=== PATIENT | female | born 1960 | race Caucasian/White ===

== ENCOUNTER → 2020-01-12 15:29 | Outpatient (CLI) | payer OTHER, SELFPAY ==
--- NOTE | ~2020-01-12 | XR_ITS ---
EXAMINATION: XR lumbar spine min 4V EXAM DATE: 01/12/2020 15:54 INDICATION: Low back pain. TECHNIQUE: Lumber spine frontal, lateral, bilateral oblique projections. Coned down frontal and lat eral L5-S1 lumbar projections for interpretation. There is no prior study for comparison. FINDINGS: There is moderate disc disease at L5-S1, mild to moderate at L2-3 and L4-5, mild at L3-4. T here is mild upper lumbar, mild to moderate lower lumbar facet arthropathy. Vertebral body heights ar e maintained. Sacrum, sacroiliac joints, sacral arcuate lines are intact. There is no spondylolysis. Paraspinal soft tissue is unremarkable. IMPRESSION: Mild to moderate lumbar spondylosis. Reviewed, dictated and finalized at location A. DING ATTENDANT
== END ==
PROVIDERS: PCP Internal Medicine; Visit Provider Chiropractor
DX: M99.03 Segmental and somatic dysfunction of lumbar region (principal); M99.02 Segmental and somatic dysfunction of thoracic region; M99.05 Segmental and somatic dysfunction of pelvic region; M99.04 Segmental and somatic dysfunction of sacral region; M47.896 Other spondylosis, lumbar region
CPT/HCPCS: 72110

== ENCOUNTER 2020-04-27 17:26 | Outpatient (CLI) | payer OTHER, SELFPAY ==
--- NOTE | ~2020-04-27 | MR_ITS ---
EXAMINATION: MR lumbar spine wo con DATE: 04/27/2020 18:30 INDICATION: Lumbar radiculopathy. TECHNIQUE: Magnetic resonance imaging (MRI) of the lumbar spine was performed without intravenous con trast. Sequences included sagittal T2-weighted FSE, sagittal T2-weighted FS FSE, sagittal T1-weighted FSE, and axial T2-weighted FSE. COMPARISON: Lumbar spine radiographs 01/12/2020 FINDINGS: There is 4 mm retrolisthesis of L2 on L3. Vertebral body heights are normal. There is mildl y decreased disc height at L2-L3 and L3-L4 and severely decreased disc height at L4-L5 and L5-S1. The distal spinal cord signal intensity is normal. The conus medullaris is at T12-L1. The following disc levels are specifically discussed: L1-L2: The disc does not extend beyond the endplate margin. There is mild left facet joint osteoarthr itis. There is no neural foraminal stenosis. There is no central canal stenosis. L2-L3: The disc is bulging. There is mild bilateral facet joint osteoarthritis. There is mild bilater al neural foraminal stenosis. There is mild central canal stenosis. L3-L4: The disc is bulging. There is moderate bilateral facet joint osteoarthritis. There is mild ollie ateral neural foraminal stenosis. There is mild central canal stenosis. L4-L5: The disc is bulging with superimposed central extrusion with 16 mm superior extension to the p edicular level. There is severe right and moderate left facet joint osteoarthritis. There is moderate bilateral neural foraminal stenosis. There is moderate central canal stenosis. L5-S1: The disc is bulging and has an annular fissure. There is moderate bilateral facet joint osteoa rthritis. There is mild bilateral neural foraminal stenosis. There is mild central canal stenosis. IMPRESSION: 1. Severe lumbar spondylosis. Reviewed, dictated and finalized at location A.
== END 2020-04-27 17:27 | disposition home or self-care (01) ==
LOC: ANHIMG 17:26
PROVIDERS: PCP Internal Medicine; Visit Provider Internal Medicine
DX: M47.26 Other spondylosis with radiculopathy, lumbar region (principal)
CPT/HCPCS: 72148

== ENCOUNTER → 2021-01-13 00:46 | Outpatient (CLI) | payer OTHER, SELFPAY ==
[2021-01-13 19:48] LABS: SARS-CoV-2 RNA PCR Negative
== END ==
PROVIDERS: PCP Internal Medicine; Visit Provider Internal Medicine Gastroenterology
DX: Z01.812 Encounter for preprocedural laboratory examination (principal); Z20.822 Contact with and (suspected) exposure to COVID-19
CPT/HCPCS: C9803; U0003; U0005

== ENCOUNTER 2021-01-16 00:53 | Day surgery (SDC) | payer OTHER, SELFPAY ==
[2021-01-03 09:23] VITALS: BMI 25.9
[2021-01-16 11:17] VITALS: BP 124/71; PULSE 76; RESP 18; TEMP 36.5; O2SAT 99
[2021-01-16] MEDS: LACTATED RINGERS 1,000 ML 150 ML IV CONT (11:28)
--- NOTE | 2021-01-16 11:46 | WPDANESEPPF ---
Anes - Initial Pre Proc Eval Procedure: Operation Date: 01/16/21 12:15 Proposed Procedures p Screening Colonoscopy - Ilan Adan MD Date/Time: 01/16/21 11:46 Surgeon: Ilan Adan MD Pre Op Diagnosis: Neoplasm Screening Patient Data Age: 60 Gender: F Height: 5 ft 10 in Weight: 82.9 kg Last Vital Signs Temp 36.5 C 01/16/21 11:17 Pulse 76 01/16/21 11:17 Resp 18 01/16/21 11:17 BP 124/71 01/16/21 11:17 Pulse Ox 99 01/16/21 11:17 Allergies Allergy/AdvReac Type Severity Reaction Status Date / Time No Known Allergies Verified 01/16/21 11:16 Home Medications Medication Instructions Recorded Confirmed Type aspirin 81 mg tablet,delayed 81 mg PO DAILY 11/22/19 01/16/21 History release cholecalciferol (vitamin D3) 1,250 50,000 unit PO .3x month cap 11/22/19 01/16/21 History mcg (50,000 unit) capsule estradiol-norethindrone acet 1 1 tablet PO DAILY 11/22/19 01/16/21 History mg-0.5 mg tablet fluticasone propionate 50 1 spray NASAL Q12H 11/22/19 01/16/21 History mcg/actuation nasal spray,suspension zolpidem 5 mg tablet 5 mg PO .hs prn #10 tablet 11/23/19 01/16/21 Rx lisinopril 20 1 tablet PO DAILY 03/28/20 01/16/21 History mg-hydrochlorothiazide 12.5 mg tablet sodium,potassium,mag sulfates 17.5 See Rx Instructions PO .COMPLEX 01/02/21 01/16/21 Rx gram-3.13 gram-1.6 gram oral soln #354 ml Patient hx anesthesia problems: post op nausea/vomiting Family hx anesthesia problems: none PMFSH Past Medical History Medical History Adopted Allergies Hypercholesterolemia Hypertension Insomnia Vertigo Vitamin D deficiency Surgical History Surgical History Previous back surgery 11/20/2020 Social History Social History Smoking status: Never smoker Alcohol intake: never Substance use: never Substance use type: does not use Living arrangements: with family Spiritual care concerns: No Anes - Eval Final PreProcedure Day of Procedure 01/16/21 11:46 Patient weight: overweight Heart: regular rate and rhythm Lungs: clear to auscultation Airway: Mallampati scale class II Neurological: alert and oriented Last oral intake: >/= 8 hours ASA classification: II Emergent: no Anesthetic plan: proceed Anesthesia type and monitoring: general GIVS and standard monitoring Informed Consent: The patient's anesthetic plan and its attendant risks and benefits were discussed with the patient/family/POA. Questions were solicited and answers provided to the satisfaction of the patient/family/POA.
--- NOTE | 2021-01-16 12:17 | PM.HPGS ---
History of Present Illness History of Present Illness Consent: Risks, benefits, and alternatives have been discussed and questions answered. Patient agrees to proceed with procedure. Chief complaint: Neoplasm Screening Narrative: Jess Finney is a 60 year old female here for screening colonoscopy, last one 10 years ago. Review of Systems Constitutional: Constitutional: Denies headache(s) and Denies weakness Eyes: Eyes: Denies blurry vision ENT: Reports Normal hearing present, Denies headache(s) and Denies neck pain Cardiovascular: Cardiovascular: Denies chest pain and Denies dyspnea Respiratory: Respiratory: Denies dyspnea Gastrointestinal: Gastrointestinal: Reports no additional gastrointestinal complaints Genitourinary: Genitourinary: Denies dysuria Musculoskeletal: Musculoskeletal: Denies neck pain Integumentary/Breasts: Skin/Breast: Denies dry skin Neurologic: Reports Normal hearing present, Denies headache(s) and Denies weakness Psychiatric: Psychiatric: Denies anxiety Endocrine: Endocrine: Denies change in body appearance Hematologic/Lymphatic: Hematologic/Lymphatic: Denies easy bleeding Allergic/Immunologic: Allergic/Immunologic: Denies urticaria PMFSH Past Medical History Medical History Adopted Allergies Hypercholesterolemia Hypertension Insomnia Vertigo Vitamin D deficiency Surgical History Surgical History Previous back surgery 11/20/2020 Social History Social History Smoking status: Never smoker Alcohol intake: never Substance use: never Substance use type: does not use Living arrangements: with family Spiritual care concerns: No Meds Home Medications and Allergies Home Medications Medication Instructions Recorded Confirmed Type aspirin 81 mg tablet,delayed 81 mg PO DAILY 11/22/19 01/16/21 History release cholecalciferol (vitamin D3) 1,250 50,000 unit PO .3x month cap 11/22/19 01/16/21 History mcg (50,000 unit) capsule estradiol-norethindrone acet 1 1 tablet PO DAILY 11/22/19 01/16/21 History mg-0.5 mg tablet fluticasone propionate 50 1 spray NASAL Q12H 11/22/19 01/16/21 History mcg/actuation nasal spray,suspension zolpidem 5 mg tablet 5 mg PO .hs prn #10 tablet 11/23/19 01/16/21 Rx lisinopril 20 1 tablet PO DAILY 03/28/20 01/16/21 History mg-hydrochlorothiazide 12.5 mg tablet sodium,potassium,mag sulfates 17.5 See Rx Instructions PO .COMPLEX 01/02/21 01/16/21 Rx gram-3.13 gram-1.6 gram oral soln #354 ml Allergies Allergy/AdvReac Type Severity Reaction Status Date / Time No Known Allergies Verified 01/16/21 11:16 Vital Signs Vital Signs - 24 hr 01/16/21 11:17 Temperature 97.7 F Pulse Rate 76 Respiratory Rate 18 Blood Pressure 124/71 Pulse Oximetry 99 Exam Const: General: comfortable and no acute distress HENMT: General nose exam: Normal nares present Eyes: General: appearance normal, both eyes and all related structures Neck: Neck: no JVD Resp: Auscultation: clear to auscultation bilaterally Cardio: Rate: regular rate Rhythm: regular rhythm GI: Inspection: non-distended GI Palp: Yes Soft to palpation Skin: General skin exam: normal color Neuro: General: gait normal Speech: normal speech Extrem: General: normal to inspection Psych: Mental Status: mental status grossly normal Assessment and Plan Assessment and plan (1) Screening for colon cancer: Code(s): Z12.11 - Encounter for screening for malignant neoplasm of colon Status: Acute Assessment and Plan: proceed with colonoscopy
[2021-01-16 12:42] VITALS: BP 142/76; PULSE 63; RESP 15; O2SAT 100
[2021-01-16 12:52] VITALS: BP 150/81; PULSE 61; RESP 12; O2SAT 99
[2021-01-16 13:02] VITALS: BP 148/79; PULSE 51; RESP 13; O2SAT 100
== END 2021-01-16 13:11 | disposition home or self-care (01) ==
PROVIDERS: PCP Internal Medicine; Visit Provider Internal Medicine Gastroenterology
PROC: 0DJD8ZZ Inspection of Lower Intestinal Tract, Via Natural or Artificial Opening Endoscopic (ICD-10-PCS; CPT 45378; principal; 2021-01-16 12:15)
DX: Z12.11 Encounter for screening for malignant neoplasm of colon (principal); K57.30 Diverticulosis of large intestine without perforation or abscess without bleeding; K64.8 Other hemorrhoids; I10 Essential (primary) hypertension; E78.00 Pure hypercholesterolemia, unspecified; E55.9 Vitamin D deficiency, unspecified; Z79.82 Long term (current) use of aspirin
CPT/HCPCS: 45378; J2704; J7120

== ENCOUNTER → 2023-05-29 12:34 | Outpatient (CLI) | payer OTHER, SELFPAY ==
--- NOTE | ~2023-05-29 | XR_ITS ---
Clinical Indication: Cough PA and lateral views of the chest: Comparison: None Findings: The lungs are clear, without evidence of focal consolidation or pleural effusion. Cardiome diastinal silhouette is within normal limits. Bones and soft tissues are unremarkable. Impression: Normal chest. Reviewed, dictated and finalized at location . Impression: Normal chest.
== END ==
PROVIDERS: PCP Nurse Practitioner; Visit Provider Nurse Practitioner
DX: R05.9 Cough, unspecified (principal)
CPT/HCPCS: 71046

== ENCOUNTER → 2023-10-20 13:10 | Outpatient (CLI) | payer OTHER, SELFPAY ==
--- NOTE | ~2023-10-20 | DEXA_ITS ---
Bone Density Report Name: MELANIE KELLY Age: 63 Sex: Female Ethnicity: White Date of : 1960 Indication: postmenopausal; screening for osteoporosis; height loss; Referring Provider: NATALEE BARRERA Study: Bone densitometry was performed. Exam Date: October 20, 2023 Accession number: [id number] Bone Density: Region BMD T-score Z-score Classification AP Spine (L1, L2) 1.079 0.9 2.5 Normal Femoral Neck (Left) 0.898 0.4 1.9 Normal Total Hip (Left) 1.008 0.5 1.7 Normal Femoral Neck (Right) 0.897 0.4 1.9 Normal Total Hip (Right) 0.989 0.4 1.5 Normal Total Hip Mean 0.999 0.5 1.6 Normal World Health Organization criteria for BMD impression classify patients as: Normal (T-score at or above -1.0), Osteopenia (T-score between -1.0 and -2.5), or Osteoporosis (T-score at or below -2.5). 10-year Fracture Risk: FRAX not reported because: All T-scores for Spine Total, Hip Total, Femoral Neck at or above -1.0 Clinical Information Provided by Patient: Has used the following medications: HRT (i.e. estrogen/hormone therapy), Vitamin D, MTV Patient maximum height was 70.5 Menopause Age: 53 Drinks caffeinated beverages Onset of menses at age 13 Number of children 4 Impression: The patient has normal bone mass. Discussion: BONE DENSITY IS ABOVE THE MINIMUM DESIRABLE LEVEL AT ALL SKELETAL SITES TESTED. This patient?s bone mineral density is above the minimum desirable level (T-score -1.0 or better) at all sites measured. The patient should follow a healthful lifestyle (good nutrition with adequate calcium and vitamin D, and appropriate weight-bearing exercise). Follow-Up: Consider repeating this study in 5 years or sooner if there is some new clinical indication. Reported by: ZEYNEP on 10/20/2023 1:54:00 PM. Reviewed, dictated and finalized at location AJavier ALCANTARA
--- NOTE | ~2023-10-20 | MM_ITS ---
EXAMINATION: MM screening andrea BI w meliton HISTORY: Screening TECHNIQUE: Craniocaudal and mediolateral oblique 3-D tomosynthesis images were obtained and synthetic 2-D images were generated. CAD analysis was submitted and interpreted. COMPARISON: No prior mammogram is available for comparison at this institution. BREAST PARENCHYMAL COMPOSITION: There are scattered areas of fibroglandular density. FINDINGS: There is no evidence of suspicious mass, calcification, or architectural distortion to sugg est malignancy in either breast. There has been no suspicious interval change. IMPRESSION: 1. No mammographic evidence of malignancy. 2. Recommend routine screening mammography in one year. BI-RADS Category 1: Negative Reviewed, dictated and finalized at location A. LING EQUIPMENT SALES REPRESENTATIVE
== END ==
PROVIDERS: PCP Internal Medicine; Visit Provider Obstetrics & Gynecology Gynecology
DX: Z12.31 Encounter for screening mammogram for malignant neoplasm of breast (principal); Z78.0 Asymptomatic menopausal state
CPT/HCPCS: 77063; 77067; 77080

== ENCOUNTER 2024-02-12 10:30 | Outpatient (CLI) | payer OTHER, SELFPAY ==
[2024-02-12 13:18] LABS: Appearance Urine Clear (Clear); Bilirubin Urine Negative (Negative); Blood Urine Negative (Negative); Color Urine Yellow (Yellow); Glucose Urine UA Negative (Negative); Ketones Urine Negative (Negative); Leukocyte Esterase Ur Negative LEU/UL (Negative); Nitrate Urine Negative (Negative); Protein Urine Negative (Negative); Specific Grav Ur 1.012 (1.001-1.035); Urobilinogen Urine 0.2 mg/dL (<2.0)
[2024-02-12 13:31] LABS: Add Urine Microscopic? NO
== END 2024-02-12 10:31 | disposition home or self-care (01) ==
LOC: ANHGOSHLAB 10:31
PROVIDERS: PCP Nurse Practitioner; Visit Provider Nurse Practitioner
DX: R10.9 Unspecified abdominal pain (principal)
CPT/HCPCS: 81003

== ENCOUNTER 2024-05-04 10:50 | Outpatient (CLI) | payer OTHER, SELFPAY ==
--- NOTE | ~2024-05-04 | US_ITS ---
US transvaginal Ordering provider: Radha Thayer MD History: . PMB . Comparison: December 08, 2015 Technique: Transabdominal and endovaginal ultrasound of the pelvis (Doppler ultrasound interrogation techniques used as needed for this exam.) FINDINGS: CERVIX: Normal. UTERUS: Measures 7.6x 3.7x 4.6 cm in length which is within normal limits and is anteverted. No myom etrial masses. ENDOMETRIUM: Normal in thickness measuring 9 mm. Complex echogenic area is seen in the endometrial ca vity which measures 1.1 x 1 x 1 cm. Further evaluation advised.. No endometrial masses, cysts or flui d. CUL DE SAC: No free fluid. RIGHT OVARY: Not visualized. LEFT OVARY: Not visualized. ADNEXA: Normal. No mass. IMPRESSION: Complex echogenic area is seen in the endometrial cavity which measures 1.1 x 1 x 1 cm. Further evalu ation advised to exclude endometrial carcinoma.. Otherwise, normal pelvic ultrasound. Reviewed, dictated and finalized at location A. IMPRESSION: Complex echogenic area is seen in the endometrial cavity which measures 1.1 x 1 x 1 cm. Further evaluation advised to exclude endometrial carcinoma.. Otherwis e, normal pelvic ultrasound.
== END 2024-05-04 10:51 ==
LOC: MICIMG 10:51
PROVIDERS: PCP Nurse Practitioner; Visit Provider Obstetrics & Gynecology Gynecology
DX: N95.0 Postmenopausal bleeding (principal)
CPT/HCPCS: 76830

== ENCOUNTER 2024-05-15 13:48 | Emergency (ER) | payer OTHER, SELFPAY ==
[2024-05-15 13:58] VITALS: BP 113/80; PULSE 82; RESP 16; TEMP 36.3; O2SAT 100
--- NOTE | 2024-05-15 14:42 | ED.URI ---
HPI - URI/Sore Throat General Chief Complaint: Upper Respiratory Infection Stated Complaint: Sinus Infection Symptoms Time Seen by Provider: 05/15/24 14:32 Source: patient and RN notes reviewed Mode of arrival: ambulatory Limitations: no limitations History of Present Illness HPI Narrative: Patient presents today complaining bilateral ear pressure x10 days, worse since night. Associated symptoms include postnasal drip, cough that is worse when lying flat. Denies fever. She has been taking Tylenol without much relief. She has also tried Coricidin HBP. Related Data Home Medications Medication Instructions Recorded Confirmed cholecalciferol (vitamin D3) 1,250 50,000 unit PO .3x month 11/22/19 05/15/24 mcg (50,000 unit) capsule estradiol-norethindrone acet 1 1 tablet PO DAILY 11/22/19 05/15/24 mg-0.5 mg tablet (Activella) fluticasone propionate 50 1 spray intranasal Q12H 11/22/19 05/15/24 mcg/actuation nasal spray,suspension (Flonase Allergy Relief) atorvastatin 40 mg tablet 40 mg PO DAILY 05/29/23 05/15/24 mecobalamin (vitamin B12) 1,000 1,000 mcg sublingual DAILY 01/01/24 05/15/24 mcg disintegrating tablet,sublingual pyridoxine (vitamin B6) 100 mg 100 mg PO DAILY 01/01/24 05/15/24 tablet Allergies Allergy/AdvReac Type Severity Reaction Status Date / Time No Known Allergies Allergy Verified 05/15/24 14:31 Review of Systems Review of Systems: CONSTITUTIONAL: Denies body aches, fever, chills, or sweats. EYES: Denies visual changes, redness, or discharge. ENT: Denies rhinorrhea, sore throat, or otalgia.+ congestion, sinus pressure, bilateral ear pressure CARDIOVASCULAR: Denies chest pain, palpitations, or edema. RESPIRATORY: Denies dyspnea.+ cough GASTROINTESTINAL: Denies abdominal pain, nausea, vomiting, or diarrhea. GENITOURINARY: Denies dysuria or hematuria. SKIN: Denies rash, itching, or wounds. MUSCULOSKELETAL: Denies back pain, joint pain, or myalgia. NEUROLOGIC: Denies headache, numbness, tingling, or weakness. PSYCH: Denies depression or anxiety. [facility] Past Medical History Medical History Adopted Allergies Anemia Elevated liver enzymes Hypercholesterolemia Hypertension Insomnia Vertigo Vitamin D deficiency Surgical History Surgical History History of hip surgery Previous back surgery 11/20/2020 Social History Social History Smoking status: Never smoker Alcohol intake: never Substance use: never Substance use type: does not use Lack of Transportation: No Lack of Food: Never True Current Housing: I Have Housing Concerned About Future Housing: No Difficulty Paying Gas/Electric Bills: No Difficulty Paying for Meds: No Currently Unemployed: No Education: High School Diploma/GED Difficulty w/ Childcare or Family Care: No Living arrangements: with family Spiritual care concerns: No Comments At time of signature, I have reviewed and agree with nursing past medical, surgical, social and family history unless otherwise noted. Please see nursing chart for further information. There is no relevant family history pertinent to the presenting complaint Exam Narrative: GENERAL: Mildly ill-appearing, well-nourished, and in no acute distress. HEAD: Normocephalic, atraumatic. EYES: EOMI. No redness or drainage. Conjunctivae normal. ENT: Mucous membranes pink and moist. Nares congested. No rhinorrhea. TMs normal bilaterally. Throat normal with small amount of postnasal drainage. Uvula midline. Bilateral maxillary sinus tenderness NECK: Normal AROM. Supple. No lymphadenopathy. CHEST: No respiratory distress. Clear to auscultation. HEART: Regular rate and rhythm. No murmur appreciated. EXTREMITIES: Normal range of motion. No edema. SKIN: Warm, dry, no rash
== END 2024-05-15 15:08 | disposition home or self-care (01) ==
PROVIDERS: Emergency Provider Nurse Practitioner; PCP Internal Medicine
DX: J01.00 Acute maxillary sinusitis, unspecified (principal); E78.00 Pure hypercholesterolemia, unspecified; I10 Essential (primary) hypertension; E55.9 Vitamin D deficiency, unspecified; D64.9 Anemia, unspecified
CPT/HCPCS: 99213; G0463

== ENCOUNTER 2024-05-27 10:46 | Outpatient (CLI) | payer OTHER, SELFPAY ==
[2024-05-27 11:29] LABS: Anion Gap 12 mmol/L (4-12); Blood Urea Nitrogen 19 mg/dL (7-17); Calcium 9.2 mg/dL (8.4-10.2); Carbon Dioxide 24 mmol/L (22-30); Chloride 99 mmol/L (98-107); Estimated Glomerular Filt Rate 56; Glucose 89 mg/dL (65-110); Potassium 4.2 mmol/L (3.4-5.0); Sodium 135 mmol/L (137-145)
== END 2024-05-27 10:47 | disposition home or self-care (01) ==
LOC: ANHSURGERY 10:51
PROVIDERS: Anesthesiology; PCP Nurse Practitioner; Visit Provider Obstetrics & Gynecology Gynecology
DX: I10 Essential (primary) hypertension (principal); Z01.818 Encounter for other preprocedural examination
CPT/HCPCS: 36415; 80048

== ENCOUNTER 2024-05-31 01:16 | Day surgery (SDC) | payer OTHER, SELFPAY ==
[2024-05-25 15:09] VITALS: BMI 26.9
--- NOTE | 2024-05-25 15:18 | PC.NURSE ---
Report to the Outpatient Waiting Room, entrance under the green pavilion located off [facility], at time __0630_ on date 05/31/24_. Planned Procedure Time: _0830_. Time changes happen often and if your time is changed the preop area will call you the afternoon before. - You and your visitor will be asked to self-screen and do not enter if you have any COVID symptoms. - A mask is optional within the hospital at this time. Patients may have clear liquids (water, carbonated beverages, clear teas, apple juice) until 3 hours prior to surgery with a maximum of 20 ounces. - No food from midnight until time of surgery - Infants may have breast milk until 4 hours before surgery, infant formula 6 hours prior to surgery. - Children will be allowed to drink immediately following surgery. If applicable, please bring a bottle or sippy cup to assist with drinking. Juice, water, soda, and popsicles are readily available. For infants on formula, please bring formula the day of surgery. Pacifiers are allowed. Take the following medications with a SIP of water the morning of surgery: NONE DO NOT STOP ANY OF YOUR OTHER PRESCRIPTION MEDICATIONS PRIOR TO SURGERY ?EXCEPT THE FOLLOWING Medications to discontinue per physician VITAMINS, SUPPLIMENTS Date to take last dose___05/27/22 Please no make-up, nail english, hairspray, perfume, deodorant, or body powder the day of surgery. No jewelry (including any body piercings) or valuables the day of surgery, leave them at home. Please take a shower or bath the night before, or the morning of, surgery with an antibacterial soap. Wear comfortable, loose fitting clothing. Children are encouraged to wear pajamas. - Jewelry must be removed prior to entering the operating room. Rings and piercings that are not removed may be cut off. - The hospital will not accept responsibility for valuables. - Please leave all valuables, including medications, at home the day of surgery. If you are going home after surgery, a licensed route driver coin machines must drive you home. - NO public transportation without another adult if you receive anesthesia. - We recommend that an adult stay with you for 24 hours following discharge. - We also recommend that you do not drive, make important decision, drink alcoholic beverages, or take any drugs that were not prescribed by your health care provider for at least 24 hours after your discharge time. For Pediatric surgeries, we recommend two adults accompany the child home. Follow any additional instructions given to you from your surgeon. If you or anyone in your household have experienced Covid symptoms in the past week, please notify your surgeon or the nurse liaison at the phone number below for possible testing. Telephone instructions given to _PATIENT__and asked if any additional questions and then verbalized understanding. Patient advised to call surgeon office or pre surgery nurse liaison [phone] if any additional questions.
[2024-05-31 06:40] VITALS: BP 140/81; PULSE 61; RESP 16; TEMP 36.3; O2SAT 100
[2024-05-31 06:45] VITALS: BMI 27.0
[2024-05-31] MEDS: LACTATED RINGERS 1,000 ML 30 ML IV CONT (07:00)
[2024-05-31] MEDS: ACETAMINOPHEN 500 MG TABLET 1000 MG PO (07:08)
--- NOTE | 2024-05-31 07:20 | WPDHPUPDATE1 ---
History and Physical Update Update Date/Time: 05/31/24 07:20 History and Physical has been reviewed, including an updated exam of the patient. There are NO changes in the patient's condition. Risks, benefits, and alternatives have been discussed and questions answered. Patient agrees to proceed with procedure.
--- NOTE | 2024-05-31 07:20 | PM.HPGS ---
History of Present Illness History of Present Illness Consent: Risks, benefits, and alternatives have been discussed and questions answered. Patient agrees to proceed with procedure. Chief complaint: post menopausal bleeding Narrative: Jess Finney is a 64 year old female with an episode vaginal bleeding. Pelvic ultrasound was performed and the endometrium was thickened at 9mm. There is also a 3m5h3ul complex echogenic area in the endometrial cavity. It was recommended to have further undergo testing with hysteroscopy D&C. Risks of infection, bleeding perforation, and possible pathology are reviewed. Patient voices understanding and agrees to proceed. Review of Systems Review of Systems: not repeated day of surgery; patient states no changes in status PMFSH Past Medical History Medical History (Updated 05/31/24 @ 07:24 by Rahda Thayer MD) Adopted Anemia Elevated liver enzymes Hypercholesterolemia Hypertension Insomnia (normal spontaneous vaginal delivery) x4 Vertigo Vitamin D deficiency Surgical History Surgical History (Updated 05/31/24 @ 07:23 by Radha Thayer MD) History of bilateral tubal ligation History of breast biopsy History of hip surgery Repair left labral tear History of hysteroscopy 2012 benign findings Previous back surgery 11/20/2020 Social History Social History Smoking status: Never smoker Alcohol intake: current Alcohol use details: RARE USE 1 DRINK EVERY 2-3 MONTH Substance use: never Substance use type: does not use Lack of Transportation: No Lack of Food: Never True Current Housing: I Have Housing Concerned About Future Housing: No Difficulty Paying Gas/Electric Bills: No Difficulty Paying for Meds: No Currently Unemployed: No Education: High School Diploma/GED Difficulty w/ Childcare or Family Care: No Living arrangements: with family Spiritual care concerns: No Meds Home Medications and Allergies Home Medications Medication Instructions Recorded Confirmed Type cholecalciferol (vitamin D3) 1,250 50,000 unit PO .3x month 11/22/19 05/25/24 History mcg (50,000 unit) capsule estradiol-norethindrone acet 1 1 tablet PO DAILY 11/22/19 05/25/24 History mg-0.5 mg tablet (Activella) fluticasone propionate 50 1 spray intranasal Q12H 11/22/19 05/25/24 History mcg/actuation nasal spray,suspension (Flonase Allergy Relief) atorvastatin 40 mg tablet 40 mg PO DAILY 05/29/23 05/25/24 History mecobalamin (vitamin B12) 1,000 1,000 mcg sublingual DAILY 01/01/24 05/25/24 History mcg disintegrating tablet,sublingual pyridoxine (vitamin B6) 100 mg 100 mg PO DAILY 01/01/24 05/25/24 History tablet lisinopril 20 1 tablet PO DAILY #90 tabs 03/18/24 05/25/24 Rx mg-hydrochlorothiazide 12.5 mg tablet aspirin 81 mg tablet,delayed 81 mg PO DAILY 05/25/24 05/25/24 History release glucosamine sulf dipot 1 cap PO DAILY 05/25/24 05/25/24 History chlr,msm,chond 550 mg-C 30 mg-ortiz 1 mg capsule (Glucosamine Chondroitin) Allergies Allergy/AdvReac Type Severity Reaction Status Date / Time No Known Allergies Allergy Verified 05/25/24 15:05 Exam Const: General: healthy appearing and alert Orientation/consciousness: patient oriented x3 Resp: Effort & Inspection: normal respiratory effort : External Female Exam: normal external appearance Speculum Exam - Vagina: normal appearance of the vagina and normal vaginal discharge Speculum Exam - Cervix: normal appearance of the cervix Bimanual exam- vagina & uterus: uterine size normal and consistency normal Bimanual Exam- Adnexa, other: normal adnexae and No adnexal tenderness Neuro: General: patient oriented x3 Assessment and Plan Assessment and plan (1) Post-menopausal bleeding: Code(s): N95.0 - Postmenopausal bleeding Status: Acute Ass
--- NOTE | 2024-05-31 07:32 | WPDANESEPPF ---
Anes - Initial Pre Proc Eval Procedure: Operation Date: 05/31/24 08:30 Proposed Procedures p Hysteroscopy, Dilation and Curettage - Radha Thayer MD Date/Time: 05/31/24 07:32 Surgeon: Radha Thayer MD Pre Op Diagnosis: post menopausal bleeding Patient Data Age: 64 Gender: F Height: 1.78 m Weight: 85 kg Allergies Allergy/AdvReac Type Severity Reaction Status Date / Time No Known Allergies Allergy Verified 05/25/24 15:05 Home Medications Medication Instructions Recorded Confirmed Type cholecalciferol (vitamin D3) 1,250 50,000 unit PO .3x month 11/22/19 05/25/24 History mcg (50,000 unit) capsule estradiol-norethindrone acet 1 1 tablet PO DAILY 11/22/19 05/25/24 History mg-0.5 mg tablet (Activella) fluticasone propionate 50 1 spray intranasal Q12H 11/22/19 05/25/24 History mcg/actuation nasal spray,suspension (Flonase Allergy Relief) atorvastatin 40 mg tablet 40 mg PO DAILY 05/29/23 05/25/24 History mecobalamin (vitamin B12) 1,000 1,000 mcg sublingual DAILY 01/01/24 05/25/24 History mcg disintegrating tablet,sublingual pyridoxine (vitamin B6) 100 mg 100 mg PO DAILY 01/01/24 05/25/24 History tablet lisinopril 20 1 tablet PO DAILY #90 tabs 03/18/24 05/25/24 Rx mg-hydrochlorothiazide 12.5 mg tablet aspirin 81 mg tablet,delayed 81 mg PO DAILY 05/25/24 05/25/24 History release glucosamine sulf dipot 1 cap PO DAILY 05/25/24 05/25/24 History chlr,msm,chond 550 mg-C 30 mg-ortiz 1 mg capsule (Glucosamine Chondroitin) Patient hx anesthesia problems: post op nausea/vomiting (Remote w GA. ) Family hx anesthesia problems: none Results Review: All pre-operative results and documents have been reviewed as part of the pre-operative evaluation. [facility] Past Medical History Medical History Adopted Anemia Elevated liver enzymes Hypercholesterolemia Hypertension Insomnia (normal spontaneous vaginal delivery) x4 Vertigo Vitamin D deficiency Surgical History Surgical History History of bilateral tubal ligation History of breast biopsy History of hip surgery Repair left labral tear History of hysteroscopy 2012 benign findings Previous back surgery 11/20/2020 Social History Social History Smoking status: Never smoker Alcohol intake: current Alcohol use details: RARE USE 1 DRINK EVERY 2-3 MONTH Substance use: never Substance use type: does not use Lack of Transportation: No Lack of Food: Never True Current Housing: I Have Housing Concerned About Future Housing: No Difficulty Paying Gas/Electric Bills: No Difficulty Paying for Meds: No Currently Unemployed: No Education: High School Diploma/GED Difficulty w/ Childcare or Family Care: No Living arrangements: with family Spiritual care concerns: No Anes - Eval Final PreProcedure Day of Procedure 05/31/24 07:32 Patient weight: overweight Heart: regular rate and rhythm Lungs: clear to auscultation Airway: Mallampati scale and special considerations (Missing two teeth upper post aspect. ) Neurological: alert and oriented Last oral intake: >/= 8 hours ASA classification: II Emergent: no Anesthetic plan: proceed Anesthesia type and monitoring: general GIVS and standard monitoring Results Review: All pre-operative results and documents have been reviewed as part of the pre-operative evaluation. Pt active w yoga, HIIT, wts, no cp or sob. Informed Consent: The patient's anesthetic plan and its attendant risks and benefits were discussed with the patient/family/POA. Questions were solicited and answers provided to the satisfaction of the patient/family/POA.
[2024-05-31] MEDS: KETOROLAC 15 MG/ML VIAL (*BKC) IV PUSH (08:08)
--- NOTE | 2024-05-31 08:27 | P.OP_ITS ---
Procedure Note - Detailed Date of Procedure 05/31/24 Pre-op Diagnosis post menopausal bleeding Post-op Diagnosis Same Procedure Performed D&C hysteroscopy Surgeon Radha Thayer MD Anesthesia MAC Findings uterus sounds to 8.5cm and appears grossly atrophic there are scattered calcifications and visible blood vessels Description of Procedure The patient is taken to the operating room and placed under anesthesia in the dorsal lithotomy position. She was prepped and draped in the usual sterile fashion. [place] speculum was placed in the vagina and the cervix grasped on the anterior lip with a tenaculum. The uterus is sounded to 8.5cm. The Superbo stic hysteroscope was placed and with no abnormalities noted it is removed. The sharp OO curette is used to curette the endometrium until a good uterine cry was obtained. Minimal if any material was obtained consistent with the visual appearance. All instruments are removed. Sponge, needle, and instrument counts are correct per the OR staff. Patient was awakened from anesthesia and taken to recovery in stable condition. Estimated Blood Loss 5 Drains No Packing No Pathology Yes ( Endometrial curettings) Complications No immediate complications Condition Stable Disposition PACU
[2024-05-31 08:28] VITALS: BP 154/81; PULSE 57; RESP 16; O2SAT 99
[2024-05-31 08:55] VITALS: BP 162/80; PULSE 53; O2SAT 100
[2024-05-31 09:25] VITALS: BP 165/82; PULSE 52
[2024-05-31 09:55] VITALS: BP 164/86; PULSE 50
== END 2024-05-31 10:10 | disposition home or self-care (01) ==
PROVIDERS: PCP Nurse Practitioner; Visit Provider Obstetrics & Gynecology Gynecology
PROC: 0U5B8ZZ Destruction of Endometrium, Via Natural or Artificial Opening Endoscopic (ICD-10-PCS; CPT 58563; principal; 2024-05-31 08:30)
DX: N85.8 Other specified noninflammatory disorders of uterus (principal); D64.9 Anemia, unspecified; I10 Essential (primary) hypertension; E78.00 Pure hypercholesterolemia, unspecified; G47.00 Insomnia, unspecified; E55.9 Vitamin D deficiency, unspecified; Z79.82 Long term (current) use of aspirin; Z98.890 Other specified postprocedural states; Z98.51 Tubal ligation status; Z98.1 Arthrodesis status
CPT/HCPCS: 58558; 88305; A9270; J1100; J1200; J1885; J2250; J2405; J2704; J3010; J7120

== ENCOUNTER 2024-10-21 11:34 | Outpatient (CLI) | payer OTHER, SELFPAY ==
--- NOTE | ~2024-10-21 | MM_ITS ---
EXAMINATION: MM screening andrea BI w meliton HISTORY: Screening TECHNIQUE: Craniocaudal and mediolateral oblique 3-D tomosynthesis images were obtained and synthetic 2-D images were generated. CAD analysis was submitted and interpreted. COMPARISON: 10/20/2023 BREAST PARENCHYMAL COMPOSITION: Not dense: There are scattered areas of fibroglandular density. FINDINGS: There is no evidence of suspicious mass, calcification, or architectural distortion to sugg est malignancy in either breast. There has been no suspicious interval change. IMPRESSION: 1. No mammographic evidence of malignancy. 2. Recommend routine screening mammography in one year. BI-RADS Category 1: Negative Reviewed, dictated and finalized at location B. CUTTING MACHINE OPERATOR
== END 2024-10-21 11:35 | disposition home or self-care (01) ==
PROVIDERS: PCP Nurse Practitioner; Visit Provider Obstetrics & Gynecology Gynecology
DX: Z12.31 Encounter for screening mammogram for malignant neoplasm of breast (principal)
CPT/HCPCS: 77063; 77067

== ENCOUNTER 2024-10-27 08:55 | Outpatient (CLI) | payer OTHER, SELFPAY | END 2024-10-27 08:56 | disposition home or self-care (01) | LOC: ANHAUDIO 08:56 | PROVIDERS: PCP Nurse Practitioner; Visit Provider Nurse Practitioner | DX: H91.90 Unspecified hearing loss, unspecified ear (principal) | CPT/HCPCS: 92557; 92567 ==

== ENCOUNTER 2024-12-17 08:49 | Outpatient (CLI) | payer OTHER, SELFPAY ==
--- NOTE | 2024-12-17 08:59 | EST_ITS ---
Patient Info Name: Jess Finney Age: 64 years : 1960 Gender: Female Ht: 70 in Wt: 190 lbs BSA: 2.08 m2 Technical Quality: Good Exam Date: 12/17/2024 9:03 AM Exam Location: Echo Lab Patient Status: Outpatient Admit Date: 12/17/2024 Staff Ordering Physician: Linda Gonzalez NP Outbound Call Center Representative: Kathya Elmore RDCS Attending Provider: Referring Physician: Lisa STAUFFER; Exercise Technologist: Lizette Hyde RDCS Exercise Physician: Connor Fregoso DO Exam Type: CA stress echo Study Info Indications R07.9 - Chest pain, unspecified Treadmill exercise stress echocardiogram is performed. Summary 1. 1. Negative Blnae exercise stress test for ischemic ST changes by ECG criteria. 2. 2. Good functional capacity, achieving 8 METs of workload. 3. 3. Baseline hypertension with hypertensive response to exercise. 4. 4. Appropriate HR response to exercise. 5. 5. Appropriate HR recovery at 1 minute post exercise. 6. 6. Negative stress echocardiogram for ischemia by wall motion analysis. 7. 7. Patient informed of the above results. Stress Echo Findings Left Ventricle Appropriate increase in LV endocardial thickening with systole. Appropriate augmentation of contractility with systole. No wall motion abnormality. Left Ventricle Normal LV systolic function, no wall motion abnormality. Protocol: Blane Stress ECG Details Stage: REST Duration (min): 0 min : 58 sec Speed (mph): 0.0 Grade (%): 0 HR (bpm): 61 SBP (mmHg): 144 DBP (mmHg): 79 METS: --- Stage: REST Duration (min): 6 min : 49 sec Speed (mph): 0.0 Grade (%): 0 HR (bpm): 65 SBP (mmHg): 144 DBP (mmHg): 79 METS: --- Stage: STAGE 1 Duration (min): 1 min : 0 sec Speed (mph): 1.7 Grade (%): 10 HR (bpm): 93 SBP (mmHg): 144 DBP (mmHg): 79 METS: --- Stage: STAGE 1 Duration (min): 2 min : 0 sec Speed (mph): 1.7 Grade (%): 10 HR (bpm): 102 SBP (mmHg): 144 DBP (mmHg): 79 METS: --- Stage: STAGE 1 Duration (min): 3 min : 0 sec Speed (mph): 1.7 Grade (%): 10 HR (bpm): 107 SBP (mmHg): 176 DBP (mmHg): 74 METS: --- Stage: STAGE 2 Duration (min): 1 min : 0 sec Speed (mph): 2.5 Grade (%): 12 HR (bpm): 129 SBP (mmHg): 176 DBP (mmHg): 74 METS: --- Stage: STAGE 2 Duration (min): 2 min : 0 sec Speed (mph): 2.5 Grade (%): 12 HR (bpm): 132 SBP (mmHg): 206 DBP (mmHg): 70 METS: --- Stage: STAGE 2 Duration (min): 3 min : 0 sec Speed (mph): 2.5 Grade (%): 12 HR (bpm): 136 SBP (mmHg): 206 DBP (mmHg): 70 METS: --- Stage: STAGE 3 Duration (min): 0 min : 42 sec Speed (mph): 0.0 Grade (%): 0 HR (bpm): 147 SBP (mmHg): 213 DBP (mmHg): 73 METS: --- Stage: RECOVERY Duration (min): 0 min : 17 sec Speed (mph): 0.0 Grade (%): 0 HR (bpm): 140 SBP (mmHg): 213 DBP (mmHg): 73 METS: --- Stage: RECOVERY Duration (min): 1 min : 17 sec Speed (mph): 0.0 Grade (%): 0 HR (bpm): 100 SBP (mmHg): 213 DBP (mmHg): 73 METS: --- Stage: RECOVERY Duration (min): 2 min : 17 sec Speed (mph): 0.0 Grade (%): 0 HR (bpm): 75 SBP (mmHg): 187 DBP (mmHg): 68 METS: --- Stage: RECOVERY Duration (min): 3 min : 5 sec Speed (mph): 0.0 Grade (%): 0 HR (bpm): 74 SBP (mmHg): 187 DBP (mmHg): 68 METS: --- Rest HR: 65 bpm Peak HR: 147 bpm Rest Sys BP: 144 mmHg Peak Sys BP: 213 mmHg Max Pred HR: 156 bpm % Max Pred HR: 94 % Target HR: 133 bpm Max RPP: 31,311 bpm*mmHg Hooper Score: 1 BP Response: Patient exhibited a hypertensive response with stress Termination Reason: Reached target heart rate or workload Cardiac Symptoms: None Max ST Seg Deviation: -1.10 mm Total Time: 6 min : 42 sec Rest Saab BP: 79 mmHg Peak Saab BP: 73 mmHg Angina Score: None Total METS: 8.3 Resting ECG Sinus rhythm. Stress ECG No ST changes. Arrhythmias None. Report Signatures Stress ECG Echo
--- OUTSIDE RECORDS SUMMARY | 2024-12-17 09:03 | XMS_ITS | Referral Summary ---
Author Organization [facility] [employer] Address [address] [place] [address] Care Team Providers Care Linoleum Tile Layer Name Role Phone Ayse Hernandez MD Primary Care Provider [phone] Source Comments [facility] [employer],non-owned Affiliates and Associated Physician Practices is amultiple site organization consisting of ambulatory clinics and hospital sitesin [place], [place], [place] and [place]. This disclosure is being madepursuant to the Care Everywhere program and may not contain all information available regarding this patient. Last updated 18.[facility] [employer] Allergies No known active allergies Medications * Be aware that medications may not be up to date on this document. Alwaysverify current medications with the patient. Medication Sig Dispensed Refills Start Date End Date Status norethindrone-ethiny l estradiol (ORTHO-NOVUM ) 1-35 MG-MCG tablet Take 1 Tab by mouth once daily. Active multivitamin daily (THERAGRAN) tablet Take 1 Tab by mouth daily with food. Active [place]-3 Fatty Acids (FISH OIL) 1360 MG CAPS Take by mouth. Active calcium-vitamin D (OS-BUNNY 500 + D) 500-200 MG-UNIT tablet Take 1 Tab by mouth once daily. Active vitamin D, ergocalciferol, (DRISDOL) 35111 UNIT capsule Take 50,000 Units by mouth CONTINUOUS PRN. Active Glucosamine-Chondroi tin (GLUCOSAMINE CHONDR COMPLEX PO) Take 1 Cap by mouth once daily after lunch. Active aspirin EC (ECOTRIN) 81 MG tablet Take 81 mg by mouth once daily. Active Social History Tobacco Use Types Packs/Day Years Used Date Smoking Tobacco: Never Sex and Gender Information Value Date Recorded Sex Assigned at Not on file Gender Identity Not on file Sexual Orientation Not on file Last Filed Vital Signs Vital Sign Reading Time Taken Comments Blood Pressure 149/86 01/23/2012 11:18 AM CDT Pulse 56 01/23/2012 11:18 AM CDT Temperature - - Respiratory Rate 16 01/23/2012 11:18 AM CDT Oxygen Saturation 99% 01/23/2012 11:18 AM CDT Inhaled Oxygen Concentration - - Weight - - Height - - Body Mass Index - - Plan of Treatment Not on file Care Teams Linoleum Tile Layer Relationship Specialty Start Date End Date Ayse Hernandez MD [address] [place], [place] [id number] PCP - General 01/23/12
--- OUTSIDE RECORDS SUMMARY | 2024-12-17 09:03 | XMS_ITS | Clinical Summary ---
Author Organization [facility] [employer] Address [address] [place] [address] Care Team Providers Care Conveyor Installer Name Role Phone Ayse Hernandez MD Primary Care Provider [phone] Source Comments [facility] [employer],non-owned Affiliates and Associated Physician Practices is amultiple site organization consisting of ambulatory clinics and hospital sitesin [place], [place], [place] and [place]. This disclosure is being madepursuant to the Care Everywhere program and may not contain all information available regarding this patient. Last updated 18.[facility] [employer] Allergies No known active allergies Medications * [...] Tab by mouth daily with food. Active [place]-3 Fatty Acids (FISH OIL) 1360 MG CAPS Take by mouth. Active calcium-vitamin D (OS-BUNNY 500 + D) 500-200 MG-UNIT tablet Take 1 Tab by mouth once daily. Active vitamin D, ergocalciferol, (DRISDOL) 66904 UNIT capsule Take 50,000 Units by mouth [...] Mass Index - - Plan of Treatment Health Maintenance Due Date Last Done Comments COLOGUARD (AGES 45-75) - COL ON CA SCREENING 1960 COLON MONITORING 1960 COLONOSCOPY - COLON CA SCREENING 1960 CT COLONOGRAPHY - COLON CA SCREENING 1960 Colorectal Cancer Screening 1960 FIT - COLON CA SCREENING 1960 FLEX SIG - COLON CA SCREENING 1960 LIPID TESTING 1960 MAMMOGRAM 1960 PAP SMEAR 1960 HIV SCREENING 1975 HEPATITIS C SCREENING 03/03/1978 DTAP/TDAP/TD VACCINES (1 - Tdap) 1979 PNEUMOCOCCAL VACCINE 50+ (1 of 1 - PCV) 2010 ZOSTER VACCINE (1 of 2) 2010 COVID-19 VACCINE ( - 2023-2 5 season) 2024 INFLUENZA VACCINE (#1) 2024 DEPRESSION SCREENING 11/10/2024 Respiratory Syncytial Virus (RSV) Vaccine Pt: or over 60 yrs (1 - 1-dose 75+ series) 2035 HEPATITIS B VACCINE Aged Out No longe r eligible based on patient's age to complete this topic HIB VACCINE Aged Out No longer eligi ble based on patient's age to complete this topic HPV VACCINE Aged Out No longer eligi ble based on patient's age to complete this topic MENINGOCOCCAL (Group B) VACCINE Aged Out No longer eligible based on patient's age to complete this topic MENINGOCOCCAL VACCINE Aged Out No rosemary fer eligible based on patient's age to complete this topic PNEUMOCOCCAL VACCINE Aged Out No long er eligible based on patient's age to complete this topic Insurance Payer Benefit Plan / Group Subscriber ID Effective Dates Phone Address Type [employer] [facility] OA Effective for all dates [address] [place] [address] HMO SELF PAY NO INSURANCE SELF PAY NO INSURANCE Effective for all dates [place], [place] Self Pay [employer]LINK HE[employer]LINK [facility] OA Effective for all dates [address] [place] [address] HMO SELF PAY NO INSURANCE SELF PAY NO INSURANCE Effective for all dates [place], [place] Self Pay HE[employer]LINK HEALTHLINK [facility] OA Effective for all dates [address] [place] [address] HMO SELF PAY NO INSURANCE SELF PAY NO INSURANCE Effective for all dates [place], [place] Self Pay HE[employer]LINK HEALTHLINK OPEN ACCESS HMO [id number] 05/10/2021-Prese nt [address] [place] [address] HMO HEALTHLINK HEALTHLINK [facility] OA [id number] 11/10/2011-Prese nt [address] [place] [address] HMO Care Teams Conveyor Installer Relationship Specialty Start Date End Date Ayse Hernandez MD [address] [place] [address] PCP - General 01/23/12
--- OUTSIDE RECORDS SUMMARY | 2024-12-17 09:03 | XMS_ITS | Clinical Summary ---
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 Gender Identity Not on file Sexual Orientation Not on file Plan of Treatment Upcoming Encounters Date Type Department Care Team (Latest Contact Info) Description 01/21/2025 11:30 AM CDT Hospital Encounter [facility] [place] [address] Jaime Woods DPBalta [address] [address] 01/21/2025 11:30 AM CDT - 01/21/2025 1:15 PM CDT Surgery [facility] [place] [address] Jaime Woods DPM [address] [id number] MACY BUNIONECTOMY WITH HARDWARE RIGHT FOOT, ADAM OSTEOTOMY OF RIGHT GREAT TOE WITH HARDWARE, HAMMERTOE CORRECTION WITH HARDWARE 2ND TOE RIGHT FOOT Scheduled Procedures Name Priority Associated Diagnoses Date/Ti me BUNIONECTOMY HALLUX VALGUS 01/21/2025 11:30 AM CDT Health Maintenance Due Date Last Done Comments Cervical Cancer Screening Pa p Smear (Age 30 to 64) Every 3 Years 1960 Colorectal Cancer Screening Colonoscopy (10 Years) 1960 Annual Physical 1963 Hepatitis C 1978 DTaP, Tdap and Td Vaccines ( 1 - Tdap) 1979 Cervical Cancer Screening Pa p with HPV Testing (Age 30 to 64) Every 5 Years 1990 Cervical Cancer Screening with HPV 1990 Mammogram Screening 2000 Zoster Vaccines (1 of 2) 2010 COVID-19 Vaccine (2023-2 5 season) 2024 Influenza Adult (#1) 2024 RSV Immunization or 60+ Years (1 - 1-dose 75+ series) 2035 Meningococcal B Vaccine Aged Out No l onger eligible based on patient's age to complete this topic Meningococcal Vaccine Aged Out No rosemary fer eligible based on patient's age to complete this topic Pneumococcal Vaccine: Pediat rics (0 to 5 Years) and At-Risk Patients (6 to 64 Years) Aged Out No longer eligible b ased on patient's age to complete this topic RSV Immunizations Under 20 Months Aged Out No longer eligible based on patient's age to complete this topic
--- OUTSIDE RECORDS SUMMARY | 2024-12-17 09:03 | XMS_ITS | Encounter Summary ---
Author Organization [facility] Address [address] [facility] [place] [address] Care Team Providers Care Bottle Carrier Name Role Phone Ayse Hernandez MD Primary Care Provider [phone] Encounter Details Date Type Department Care Team (Late st Contact Info) Description 12/18/2018 Lab Requisition [facility] Care D[facility] Lab [address] [facility] [place] [id number] Adalgisa Tolliver MD [address] [facility] [address] [place] [address] Social History Tobacco Use Types Packs/Day Years Used Date Smoking Tobacco: Never Sex and Gender Information Value Date Recorded Sex Assigned at Not on file Gender Identity Not on file Sexual Orientation Not on file documented as of this encounter Plan of Treatment Not on file documented as of this encounter Procedures Procedure Name Priority Date/Time Associated Diagnosis Comments DERMATOPATH TECHNICAL REPORT Routine 12/17/2018 12:00 AM MOBILE UI/UX DESIGNER documented in this encounter Results * DERMATOPATH TECHNICAL REPORT (12/17/2018 12:00 AM MOBILE UI/UX DESIGNER) Case Report Dermatopathology Report Case: [id number] Authorizing Provider: Adalgisa Tolliver MD Collected: 12/17/2018 12:00 AM Pathologist: Denisa Wallace MD Received: 12/18/2018 07:41 AM Specimen: Skin, right upper lip 9 1:22 PM MOBILE UI/UX DESIGNER DERMATOPATHOLOGY LABORATORY Clinical History R/O nevus. Growing. 9 1:22 PM MOBILE UI/UX DESIGNER DERMATOPATHOLOGY LABORATORY Gross Description Specimen A: Received is one formalin filled container labeled with the patient's name and designated right upper lip. The specimen consists of a shave biopsy measuring 8x5x3 mm. Jar 0. [facility] Dermatopathology Laboratory performed the technical component only. 1:22 PM [facility] DERMATOPATHOLOGY [facility] Embedded Images 1:22 PM [facility] DERMATOPATHOLOGY [facility] DISCLAIMER An external and internal positive and negative controls are appropriate for the histochemical, immunohistochemical and immunofluorescence stain(s) in this case (if any), except where stated explicitly. The performance characteristics of the stain(s) cited in this report were developed and its performance characteristic determined by the Dermatopathology Laboratory at [facility], directed by Dr. Jaida Butcher. These tests need not be, and therefore are not, approved by the [place] Food and Drug Administration. The tests are used for clinical purposes. 1:22 PM [facility] DERMATOPATHOLOGY [facility]ORATORY Pathology/Cytolog y TISSUE SPECIMEN FROM SKIN / Unknown 12/17/2018 12/18/2018 7:41 AM MOBILE UI/UX DESIGNER Adalgisa Tolliver MD LAB - PATHOLOGY/CYT OLOGY ORDERABLES DERMATOPATHOLOGY LABORATORY [facility] - Department of Dermatology [address] [place] [address] 5th Floor Lab [address] [phone] documented in this encounter Visit Diagnoses Not on filedocumented in this encounter Care Teams Bottle Carrier Relationship Specialty Start Date End Date Ayse Hernandez MD [address] [place] [address] PCP - General 01/23/12 documented as of this encounter
--- OUTSIDE RECORDS SUMMARY | 2024-12-17 09:03 | XMS_ITS | Patient Health Summary ---
Author Organization [facility], formerly [facility] Address [address] [place] [address] Care Team Providers Care Support Staff Name Role Phone Ayse Hernandez MD Primary Care Provider [phone] Note from [facility],non-owned Affiliates and Associated Physician Practices is amultiple site organization consisting of ambulatory clinics and hospital sitesin [place], [place], [place] and [place]. This disclosure is being madepursuant to the Care Everywhere program and may not contain all information available regarding this patient. Last updated 18.[facility] Insights Allergies No known active allergies Medications * Be aware that medications may not be up to date on this document. Alwaysverify current medications with the patient. * norethindrone-ethinyl estradiol (ORTHO-NOVUM ) 1-35 MG-MCG tablet Take 1 Tab by mouth once daily. * multivitamin daily (THERAGRAN) tablet Take 1 Tab by mouth daily with food. * Deweese-3 Fatty Acids (FISH OIL) 1360 MG CAPS Take by mouth. * calcium-vitamin D (OS-BUNNY 500 + D) 500-200 MG-UNIT tablet Take 1 Tab by mouth once daily. * vitamin D, ergocalciferol, (DRISDOL) 32386 UNIT capsule Take 50,000 Units by mouth CONTINUOUS PRN. * Glucosamine-Chondroitin (GLUCOSAMINE CHONDR COMPLEX PO) Take 1 Cap by mouth once daily after lunch. * aspirin EC (ECOTRIN) 81 MG tablet Take 81 mg by mouth once daily. Social History Tobacco Use Types Packs/Day Years [...] - - Body Mass Index - - Procedures * DERMATOPATHOLOGY(Performed 07/31/2021) * DERMATOPATH TECHNICAL REPORT(Performed 12/17/2018) * PAIN MANAGEMENT PROCEDURE TIME(Performed 01/23/2012) Performed for Displacement of lumbar intervertebral disc without myelopathy, Thoracic or lumbosacral neuritis or radiculitis, unspecified Results * DERMATOPATHOLOGY (07/31/2021 12:00 AM CDT) Case Report Dermatopathology Report Case: [id number] Authorizing Provider: Adalgisa Tolliver MD Collected: 07/31/2021 12:00 AM Ordering Location: [facility] DermPath Lab Received: 08/01/2021 09:26 AM Pathologist: Balta Butcher MD Specimen: Skin, mid back 1:50 PM CDT DERMATOPATHOLOGY LABORATORY Final Diagnosis Specimen A. SKIN, mid back: NEUROFIBROMA (D36.10) 1:50 PM CDT DERMATOPATHOLOGY LABORATORY Clinical History R/O nevus, irritated. 1:50 PM CDT DERMATOPATHOLOGY LABORATORY Gross Description Specimen A: Received is one formalin filled container labeled with the patient's name and designated mid back. The specimen consists of a shave measuring [id number]. Jar 0. 1:50 PM CDT DERMATOPATHOLOGY LABORATORY Microscopic Description Specimen A. SKIN, mid back: Sections show a proliferation of spindled and S-shaped cells within the dermis. The stromal collagen is delicate and pale. 1 1:50 PM CDT DERMATOPATHOLOGY LABORATORY Disclaimer An external and internal positive and negative controls are appropriate for the histochemical, immunohistochemical and immunofluorescence stain(s) in this case (if any), except where stated explicitly. The performance characteristics of the stain(s) cited in this report were developed and its performance characteristic determined by the Dermatopathology Laboratory at [facility], directed by Dr. Jaida Butcher. These tests need not be, and therefore are not, approved by the [place] Food and Drug Administration. The tests are used for clinical purposes. Billing Codes Specimen Charges Stain Charges 47557 1 1 1:50 PM CDT DERMATOPATHOLOGY LABORATORY Embedded Images 1 1:50 PM CDT DERMATOPATHOLOGY LABORATORY Pathology/Cytolog y TISSUE SPECIMEN FROM SKIN / Unknown 07/31/2021 08/01/2021 9:26 AM CDT Adalgisa Tolliver MD LAB - PATHOLOGY/CYT OLOGY ORDERABLES DERMATOPATHOLOGY LABORATORY [facility] Department of Dermatology [address] [phone] * DERMATOPATH TECHNICAL REPORT (12/17/2018 12:00 AM [facility]) Case Report Dermatopathology Report Case: [id number] Authorizing Provider: Adalgisa Tolliver MD Collected: 12/17/2018 12:00 AM Pathologist: Denisa Wallace MD Received: 12/18/2018 07:41 AM Specimen: Skin, right upper lip 1:22 PM [facility] DERMATOPATHOLOGY LABORATORY Clinical History R/O nevus. Growing. 1:22 PM [facility] DERMATOPATHOLOGY LABORATORY Gross Description Specimen A: Received is one formalin filled container labeled with the patient's name and designated right upper lip. The specimen consists of a shave biopsy measuring 8x5x3 mm. Jar 0. [facility] Dermatopathology Laboratory performed the technical component only. 1:22 PM [facility] DERMATOPATHOLOGY LABORATORY Embedded Images 1:22 PM [facility] DERMATOPATHOLOGY LABORATORY DISCLAIMER An external and internal positive and negative controls are appropriate for the histochemical, immunohistochemical and immunofluorescence stain(s) in this case (if any), except where stated explicitly. The performance characteristics of the stain(s) cited in this report were developed and its performance characteristic determined by the Dermatopathology Laboratory at [facility], directed by Dr. Jaida Butcher. These tests need not be, and therefore are not, approved by the [place] Food and Drug Administration. The tests are used for clinical purposes. 9 1:22 PM [employer]OLOG[employer] INSTRUCTOR DERMATOPATHOLOGY LABORATORY Pathology/Cytolog y TISSUE SPECIMEN FROM SKIN / Unknown 12/17/2018 12/18/2018 7:41 AM BIOLOGY [employer]CT INSTRUCTOR Adalgisa Tolliver MD LAB - PATHOLOGY/CYT OLOGY ORDERABLES DERMATOPATHOLOGY LABORATORY [facility] Department of Dermatology [facility], 5th Floor Lab [address] [phone] * PAIN MANAGEMENT PROCEDURE TIME (01/23/2012 11:07 AM CDT) Anatomical Region Laterality Modality X-Ray Angiograph y Narrative 01/23/2012 11:21 AM CDT Mxaimino Esposito MD 01/23/2012 11:21 AM Bilateral L5 & S1 Transforaminal Epidural Injection Jess Finney Provider: Maximino Esposito MD 1960 Date: 01/23/2012 Ayse Hernandez MD HPI: Pain management: Pt. prestents today for a transforaminal edpidural injection. Allergies: Allergies as of 01/23/2012 (No Known Allergies) Procedures: TFE Bilateral L5 & S1 Indication for Procedure: Intractable radicular pain of the lower extremity. Procedure: Lumbar/Sacral Transforaminal Injection. Informed Consent: After the patient Jess Finney was informed of the risks and benefits of the procedure and all questions were answered, consent was signed. Risks benefits, and alternative were discussed including risk of infection, bleeding , nerve damage, worsening pain, no pain relief whatsoever, transient increase in blood pressure, blood sugar, fluid retention,possibility of headache, possibility of shingles, or any other viral outbreak secondary to immunosuppressant effects of steroid use. Prep: Pt identified, proper procedure identified, site identified, and marked by Dr. Esposito. Responsible putaway driver is not needed due to the patient not having sedation. The patient was placed in a prone position and was prepped with Chloraprep. . Fluoroscopy: Procedure done under fluoroscopy; verifying needle placement with Fluoroscopy. The transverse process/sacral foramen was identified and lidocaine 1% was injected. Local Injection: Lidocaine 1.0% into the skin and subcutaneous tissues using a 25 gauge needle. Needle Placement: A 22 gauge 3 1/2 spinal needle was then inserted through the anesthetized area until the tip stimulated the nerve root or was in the six o'clock position to the pedicle in AP and superior foramen in Lat fluoroscopic visualization. Nerve Root injected: Bilateral L5 & S1. Total Lidocaine: !%; 6ml Depo Medrol: 80 mg The patient tolerated the procedure well and there were no complications. The patient was taken to the recovery area. The patient remained in stable condition with no apparent complications. Vital signs stable. Injection site clean, dry, and intact. Post procedure instructions were given to the patient and a follow up appointment was confirmed. The patient was discharged with information on how to reach the clinic at anytime for questions or concerns. Pt ambulatory, denies complaints, DC to home. Pt survey given. Procedure codes: Epi Transfor Lumbar/Sac (S), Epi Add Levels Lumb/Sac, Fluoro. Maximino Esposito MD Procedure Note Maximino Esposito MD - 01/23/2012 11:21 AM CDT Bilateral L5 & S1 Transforaminal EpiduralInjection Jess Finney Provider: Maximino Esposito MD 1960 Date: 01/23/2012 Ayse Hernandez MD HPI: Pain management: Pt. prestents today for a transforaminal edpiduralinjection. Allergies: Allergies as of 01/23/2012 (No Known Allergies) Procedures: TFE Bilateral L5 & S1 Indication for Procedure: Intractable radicular pain of the lowerextremity. Procedure: Lumbar/Sacral Transforaminal Injection. Informed Consent: After the patient Tazshravan Smithard was informed ofthe risks and benefits of the procedure and all questions were answered,consent was signed. Risks benefits, and alternative were discussedincluding risk of infection, bleeding , nerve damage, worsening pain, nopain relief whatsoever, transient increase in blood pressure, blood sugar,fluid retention,possibility of headache, possibility of shingles, or anyother viral outbreak secondary to immunosuppressant effects of steroiduse. Prep: Pt identified, proper procedure identified, site identified, andmarked by Dr. Esposito. Responsible putaway driver is not needed due to the patientnot having sedation. The patient was placed in a prone position and was prepped withChloraprep. . Fluoroscopy: Procedure done under fluoroscopy; verifying needle placementwith Fluoroscopy. The transverse process/sacral foramen was identifiedand lidocaine 1% was injected. Local Injection: Lidocaine 1.0% into the skin and subcutaneous tissuesusing a 25 gauge needle. Needle Placement: A 22 gauge 3 1/2 spinal needle was then insertedthrough the anesthetized area until the tip stimulated the nerve root orwas in the six o'clock position to the pedicle in AP and superior foramenin Lat fluoroscopic visualization. Nerve Root injected: Bilateral L5 & S1. Total Lidocaine: !%; 6ml Depo Medrol: 80 mg The patient tolerated the procedure well and there were nocomplications. The patient was taken to the recovery area. The patientremained in stable condition with no apparent complications. Vital signsstable. Injection site clean, dry, and intact. Post procedureinstructions were given to the patient and a follow up appointment wasconfirmed. The patient was discharged with information on how to reachthe clinic at anytime for questions or concerns. Pt ambulatory, deniescomplaints, DC to home. Pt survey given. Procedure codes: Epi Transfor Lumbar/Sac (S), Epi Add Levels Lumb/Sac,Fluoro. Maximino Esposito MD Maximino Esposito MD DIAGNOSTIC IMAGING O RDERABLES Care Teams Support Staff Relationship Specialty Start Date End Date Ayse Hernandez MD [address] [place] [address] PCP - General 01/23/12
--- OUTSIDE RECORDS SUMMARY | 2024-12-17 09:03 | XMS_ITS | CONTINUITY OF CARE DOCUMENT ---
Author Name beryl cordoba Address Unknown Organization [facility] Address [address] [place] [address] Phone [phone] Care Team Providers Care Mechanical Integrity Specialist Name Role Phone Chloe Razo MD Unavailable [phone] RANGEL FIGUEROA DO Unavailable RANGEL FIGUEROA DO Unavailable [phone] PROBLEMS Condition Status Date Provider Notes Dizziness--nl carotids 07/2023 active Dwain Ahmadi CAD--calcium score 114, 07/2021 active Dwain Ahmadi SENIA, adult moderate on sleep study 01/27 - wt loss for now - will cnsider CPAP active Chloe Razo MD Menopausal active Chloe Razo MD Hyperlipidemia active Chloe Razo MD Snoring completed - Chloe Razo MD HTN essential nl lv fn mild MR, DD, 07/2023 active Dwain Ahmadi ENCOUNTERS Date Type Provider Location Encounter Diagnosis - In-person encounter Office Visit Chloe Razo MD [facility] Dizziness--nl carotids 07/2023 - In-person encounter Office Visit Chloe Razo MD [facility] - In-person encounter Office Visit Chloe Razo MD [facility] - In-person encounter Office Visit Chloe Razo MD [facility] CAD--calcium score 114, 07/2021 - In-person encounter Office Visit Chloe Razo MD [facility] SnoringOSA, adult moderate on sleep study 320 - wt loss for now - will cnsider CPAP - In-person encounter Office Visit Chloe Razo MD [facility] - In-person encounter Office Visit Chloe Razo MD [facility] HTN essential nl lv fn mild MR, DD, 07/2023OSA, adult moderate on sleep study 320 - wt loss for now - will cnsider CPAP - In-person encounter Office Visit Chloe Razo MD [facility] HTN essential nl lv fn mild MR, DD, 07/2023Hyperlipide miaMenopausal VITAL SIGNS Date Observation Value Provider Body Mass Index (Ratio) 27.40 kg/m2 Carson Razo MD blood pressure, diastolic 78 mm[Hg] Dunia nkLog blood pressure, systolic 131 mm[Hg] Lula kLog blood pressure, cuff size regular Klaus [facility] blood pressure, diastolic 78 mm[Hg] Klaus [facility] blood pressure, systolic 131 mm[Hg] Tracy [facility] pulse rate 70 /min Christian respiratory rate E&M 12 /min Christian oxygen saturation, oximetry 99 % weight E&M 191 [lb_av] Chrisitan height E&M 70 [in_i] Christian Body Mass Index (Ratio) 27.26 kg/m2 Carson Razo MD blood pressure, diastolic 85 mm[Hg] St ramón Lloyd blood pressure, systolic 144 mm[Hg] Steven Lloyd oxygen saturation, oximetry 98 % Sarah Jellico pulse rate 72 /min Sarah Mayers n weight E&M 190 [lb_av] Sarah Mayers n respiratory rate E&M 16 /min Jaspal thakkar [place] blood pressure, cuff size large St melgar Jellico height E&M 70 [in_i] Sarah Hillmo n Body Mass Index (Ratio) 27.12 kg/m2 Carson Razo MD blood pressure, cuff size large Ke rri Gruenenfelder blood pressure, diastolic 70 mm[Hg] Ke rri Gruenenfelder blood pressure, systolic 120 mm[Hg] Ker ri Goodnenfelder oxygen saturation, oximetry 98 % Saundra James respiratory rate E&M 14 /min Saundra G tessaenecherylelder pulse rate 72 /min Saundra Grnatashanenfe [facility] weight E&M 189 [lb_av] Saundra Gruenenfe lder height E&M 70 [in_i] Saundra Gruenenfe lder Body Mass Index (Ratio) 26.54 kg/m2 Carson Razo MD blood pressure, diastolic 84 mm[Hg] Sa ra Aguilar blood pressure, systolic 129 mm[Hg] Jae a Aguilar respiratory rate E&M 20 /min Stefanie Si ms oxygen saturation, oximetry 98 % Stefanie Aguilar pulse rate 64 /min Stefanie Aguilar blood pressure, cuff size regular Sa ra Aguilar weight E&M 185 [lb_av] Stefanie Aguilar height E&M 70 [in_i] Stefanie Aguilar Body Mass Index (Ratio) 26.25 kg/m2 Carson Razo MD blood pressure, diastolic 86 mm[Hg] Dunia nkLogrona blood pressure, systolic 132 mm[Hg] Lula kLogrona blood pressure, cuff size large Ke rri Goodhiren blood pressure, diastolic 86 mm[Hg] Ke rri Marekron blood pressure, systolic 132 mm[Hg] Mike ri James oxygen saturation, oximetry 97 % Saundra James respiratory rate E&M 16 /min Saundra G ruenenfelder pulse rate 76 /min Saundra Jinnycheryle lder weight E&M 183 [lb_av] Saundra Spikeelizabetnfe lder height E&M 70 [in_i] Saundra Goodtophernfe [facility] Body Mass Index (Ratio) 26.97 kg/m2 Carson Razo MD blood pressure, diastolic 88 mm[Hg] To nsha Tariq blood pressure, systolic 128 mm[Hg] Ton [facility] oxygen saturation, oximetry 98 % [facility] Tariq respiratory rate E&M 16 /min Tonsha Tariq pulse rate 77 /min Tonsha Tariq weight E&M 188 [lb_av] Tonsha Tariq height E&M 70 [in_i] Tonsha Tariq Body Mass Index (Ratio) 27.40 kg/m2 Carson Razo MD blood pressure, diastolic 93 mm[Hg] To nsha Tariq blood pressure, systolic 152 mm[Hg] Loyd [facility] oxygen saturation, oximetry 98 % Tonsha Tariq respiratory rate E&M 16 /min Tonsha Tariq pulse rate 77 /min Tonsha Tariq weight E&M 191 [lb_av] Tonsha Tariq height E&M 70 [in_i] Tonsha Tariq Body Mass Index (Ratio) 27.55 kg/m2 Carson Razo MD blood pressure, diastolic 97 mm[Hg] To [facility] blood pressure, systolic 165 mm[Hg] Loyd payton [place] blood pressure, resting Yes [facility] pulse rate 66 /min [facility] respiratory rate E&M 16 /min [facility] height E&M 70 [in_i] [facility] oxygen saturation, oximetry 98 % [facility] weight E&M 192 [lb_av] [facility] ALLERGIES Allergy Name Onset Date Reaction Criticality Status ATORVASTATIN fatigue,weakness High Criticality active OXYCODONE Low Criticality active RESULTS Date Observation Value Provider Reference Range Interpretation Location lipoprotein, beta, serum, point, quantitative, calculated 90 mg/dL [facility] 0-99 HDL cholesterol, serum 43 mg/dL [facility] >39 triglyceride, serum, random 122 mg/dL [facility] 0-149 cholesterol, serum 155 mg/dL [facility] 100-199 HISTORY OF MEDICATION USE Medication Status Instructions Dates Provider Indications Com ments atorvastatin 40 mg tablet active TAKE 1 TABLET BY MOUTH EVERYDAY AT BEDTIME [facility] atorvastatin 40 mg tablet completed Take 1 tablet by mouth at bedtime - [facility] lisinopril-hydroc hlorothiazide 20-12.5 mg tablet active TAKE 1 TABLET BY MOUTH EVERY DAY [facility] Zetia 10 mg tablet completed Take 1 tablet by mouth once a day - Juanis KAY lisinopril-hydroc hlorothiazide 20-12.5 mg tablet completed TAKE ONE TABLET BY MOUTH EVERY DAY - Sharee Ivey atorvastatin 40 mg tablet completed Take 1 tablet by mouth once a day - Dwain Ahmadi lisinopril-hydroc hlorothiazide 20-12.5 mg tablet completed Take 1 tablet by mouth once a day - Trini Medrano AMLODIPINE BESYLATE 10 MG ORAL TABLET completed one tab by mouth every night - Chloe Razo MD Activella 1-0.5 mg tablet active tablet by mouth Chloe Razo MD Cosamin ASU (with AKBA) 500 mg-116.7 mg-133.3 mg capsule active Chloe Razo MD Flonase Sensimist 27.5 mcg/actuation spray,suspension active into both nostrils Chloe Razo MD ergocalciferol (vitamin D2) 1,250 mcg (50,000 unit) capsule active Take 1 capsule by mouth Chloe Razo MD #9, 90 days supply, Prescribed by NATALEE BARRERA, Filled 04/27/2019 LOSARTAN POTASSIUM 50 MG ORAL TABLET completed Take one tablet daily - Chloe Razo MD SOCIAL HISTORY Date Observation Value Provider drug use no Juanis Ventimig socorro [facility] alcohol use, average drinks per day social Juanis Ventimiglia [facility] alcohol use yes Juanis Ventimig socorro [facility] smoking status Never smoker Juanis Ventim iglia [facility] social history reviewed E&M revi ewed - no changes required Dwain Ahmadi smoking status Never smoker Sarah stafford social history reviewed E&M revi ewed - no changes required Dwain Ahmadi smoking status Never smoker Saundra starr social history reviewed E&M revi ewed - no changes required Dwain Ahmadi social history reviewed E&M revi ewed - no changes required Dwain Ahmadi social history E&M S moking History: P atient has never smoked. Dwain Ahmadi smoking status Never smoker Saundra starr social history reviewed E&M revi ewed - no changes required Chloe Razo MD social history E&M S moking History: Rito wolff has never smoked. Jian Ari social history reviewed E&M revi ewed - no changes required Jian Ari smoking status Never smoker [facility] social history reviewed E&M revi ewed - no changes required Chloe Razo MD smoking status Never smoker [facility] number of grandchildren Chloe Razo MD T charisse Razo MD social history E&M S moking History: P new has never smoked. Chloe Razo MD social history reviewed E&M revi ewed - no changes required Chloe Razo MD smoking status Never smoker [facility] FUNCTIONAL STATUS Date Observation Value Provider HRA, CV Assess/Plan, Angina (inactive) Management Plan continue current therapy Dwain Ahmedzai HRA, CV Assess/Plan, Angina (inactive) Management Plan continue current therapy Dwain Ahmedzai HRA, CV Assess/Plan, Angina (inactive) Management Plan continue current therapy Dwain Dedemedzai FAMILY HISTORY Family Member Condition First Degree Blood Relative No Known Fam mark History INSURANCE PROVIDERS Payer name Policy type / Coverage type [facility]ly [facility] ID [id number] Other [id number] ADVANCE DIRECTIVES Name Date DISCUSSED - NO DECISION MADE TREATMENT PLAN Date Name Performer [id number],S, Dwain Ahmedza i [id number],S, Dwain Ahmedza i [id number],S, Dwain Ahmedza i [id number],S, Dwain Ahmedza i [id number],S, Dwain Ahmedza i [id number],S, Dwain Aguayomedza i [id number],S,r emains on statin therapy. Will update lipids T he following medications were removed from the medication list: Zetia 10 Mg Tablet (Ezetimibe) ..... Take 1 tablet by mouth once a day Her updated medication list for this problem includes: Atorvastatin 40 Mg Tablet (Atorvastatin) ..... Take 1 tablet by mouth at bedtime Juanisariana Kebede [facility] [id number],C,B P 131/78 today and well controlled per home readings H er updated medication list for this problem includes: Lisinopril-hydrochlorothiazide 20-12.5 Mg Tablet (Lisinopril-hydrochlorothiazide) ..... Take 1 tablet by mouth every day Juanisariana Kebede [facility] [id number],C,P atient has experienced feelings of being dizzy and off balance. More when up and moving. Etiology unclear. BP is stable and well controlled in office and per home readings. Will update echo as last echo in 2019 showed EF of 60% with mild-mod MR. Will also do carotid study to r/o stenosis. [facility]ariana [facility] [id number],C,D id discuss untreated SENIA may be contributing to poor quality sleep and fatigue. Encouraged CPAP, but she continues to decline. Recommended dental appliance which she will discuss with her dentist Juanisariana Kebede [facility] [id number],C,S he is chest pain free. No reports of SOB. Remains on statin therapy and asa. Will update lipids and echo. H er updated medication list for this problem includes: Lisinopril-hydrochlorothiazide 20-12.5 Mg Tablet (Lisinopril-hydrochlorothiazide) ..... Take 1 tablet by mouth every day Juanisariana Kebede [facility] [id number],S, Dwain Agosto i [id number],S, Dwain Agosto i [id number],S, Dwain Agosto i [id number],SDwain i [id number],S, Dwain medza i [id number],S, Dwain Ahmedza i [id number],S, Dwain medza i [id number],S, Dwain medza i [id number],S, Dwain medza i [id number],S, Dwain medza i [id number],S, Dwain medza i [id number],S, Dwain medza i [id number],S, Dwain medza i [id number],S, Dwain medza i [id number],S, Dwain medza i [id number],S, Wdain medza i [id number],S, Chloe Razo MD [id number],B, Chloe Razo MD [id number],S, Chloe Razo MD [id number],W, Chloe Razo MD [facility] Cardiology:remains o n statin therapy. Will update lipids T he following medications were removed from the medication list: Zetia 10 Mg Tablet (Ezetimibe) ..... Take 1 tablet by mouth once a day Her updated medication list for this problem includes: Atorvastatin 40 Mg Tablet (Atorvastatin) ..... Take 1 tablet by mouth at bedtime [facility] Cardiology:BP 131/78 today and well controlled per home readings H er updated medication list for this problem includes: Lisinopril-hydrochlorothiazide 20-12.5 Mg Tablet (Lisinopril-hydrochlorothiazide) ..... Take 1 tablet by mouth every day [facility] Cardiology:Patient h as experienced feelings of being dizzy and off balance. More when up and moving. Etiology unclear. BP is stable and well controlled in office and per home readings. Will update echo as last echo in 2019 showed EF of 60% with mild-mod MR. Will also do carotid study to r/o stenosis. [facility] Cardiology:Did discu ss untreated SENIA may be contributing to poor quality sleep and fatigue. Encouraged CPAP, but she continues to decline. Recommended dental appliance which she will discuss with her dentist [facility] Cardiology:She is ch est pain free. No reports of SOB. Remains on statin therapy and asa. Will update lipids and echo. H er updated medication list for this problem includes: Lisinopril-hydrochlorothiazide 20-12.5 Mg Tablet (Lisinopril-hydrochlorothiazide) ..... Take 1 tablet by mouth every day Ashuelot Pollymarlon [facility] Cardiology Dwain Aguayomedzai Cardiology Dwain Aguayomedzai Cardiology Dwain Ahmedzai Cardiology Dwain Ahmedzai Telehealth Dwain Ahmedzai Telehealth Dwain Ahmedzai Telehealth Dwain Ahmedzai Telehealth Dwain Ahmedzai Cardiology Dwain Aguayomedzai Cardiology Dwain Ahmedzai Cardiology Dwain Aguayomedzai Cardiology Dwain Aguayomedzai Cardiology Dwain Aguayomedzai Cardiology Dwain Ahmadi Cardiology Dwani Ahmadi Cardiology Dwain Ahmadi Cardiology Chloe Razo MD Cardiology Chloe Razo MD Cardiology Chloe Razo MD Cardiology Chloe Razo MD Cardiology - Chloe Razo MD Cardiology - Chloe Razo MD Cardiology - Chloe Razo MD Cardiology Chloe Razo MD Cardiology Chloe Raoz MD Cardiology Chloe Razo MD Cardiology Chloe Razo MD Cardiology Chloe Razo MD Cardiology Chloe Razo MD Date Name Carotid Duplex Bilat eral Complete Echo LIPID PANEL CT, Coronary Calcium Score Sleep Study Home Renal Artery Duplex Complete Echo HISTORY OF PROCEDURES Procedure Date Procedure Name Provider Procedure Notes S tatus EKG Chloe Razo MD completed EKG Chloe Razo MD completed CT- Coronary CA score Chloe Razo MD completed EKG Chloe Razo MD completed EKG Chloe Razo MD completed
--- OUTSIDE RECORDS SUMMARY | 2024-12-17 09:03 | XMS_ITS ---
Author Organization [facility] Address [address] [place], [place] [id number] Care Team Providers Care Plasma Table Operator Name Role Phone HOLLIE PETROS Unavailable [phone] Answer, Declined Unavailable Unavailable REASON FOR VISIT While the cortisone injections have helped her neuromas, she still has some burning pain but it is mostly at night; preventing her from getting a restful sleep Medications Medication SIG (Take, Route, Frequency, Duration) Notes Start Date End Date Status Gabapentin 100 MG 1-2 capsule Orally A t bedtime for 30 days 12/08/2023 Active methylPREDNISolone 4 MG as directed Orally one pack 023 Active Vital Signs Height 70 in 12/08/2023 Weight 185 lbs 12/08/2023 BMI 26.54 kg/m2 12/08/2023 Height-cm 177.8 cm 12/08/2023 Weight-kg 83.91 kg 12/08/2023 Encounters Encounter Location Date Provider Diagnosis [facility] [address] [place], [place] [id number] 12/08/2023 PETROS BROWNE Lesion of plantar nerve, right lower limb G57.61 ; Lesion of plantar nerve, left lower limb G57.62 ; Peroneal tendinitis, right leg M76.71 ; Hallux valgus (acquired), right foot M20.11 ; Hallux valgus (acquired), left foot M20.12 ; Pain in right foot M79.671 and Left foot pain M79.672 Assessments Encounter Date Diagnosis (ICD Code) Assessment Notes Treatment Notes Treatment Clinical Notes Section Notes 12/08/2023 Lesion of plantar nerve, right lower limb (ICD-10 - G57.61) Neuroma: Discussed various treatments with the patient regarding neuroma. Discussed conservative care consisting of padding, wider shoes, anti-inflammatorie s, and orthotics. Discussed surgical treatment options and answered all questions about the intra-operative and post-operative treatment course. Continue B6 And B12: Recommend that the patient take over the counter Vitamin B6 and B12. B6 pills should be taken 2-3 times a day. Vitamin B12 should be taken once a day as an under the tongue lozenge. 12/08/2023 Lesion of plantar nerve, left lower limb (ICD-10 - G57.62) Resolved. Continue orthotics and B vitamins 12/08/2023 Peroneal tendinitis, right leg (ICD-10 - M76.71) Peroneal Tendonitis: I discussed anti-inflammatory treatment options and various means of immobilization with the patient. I educated the patient on icing and stretching, supportive shoegear, and the use of orthotic devices and bracing. 12/08/2023 Hallux valgus (acquired), right foot (ICD-10 - M20.11) Bunion: Discussed various treatments with the patient regarding hallux abducto valgus deformity. Discussed conservative care consisting of padding, wider shoes, anti-inflammatorie s, and orthotics. Discussed surgical treatment options and answered all questions about the intra-operative and post-operative treatment course. Continue PowerStep inserts 12/08/2023 Hallux valgus (acquired), left foot (ICD-10 - M20.12) 12/08/2023 Pain in right foot (ICD-10 - M79.671) 12/08/2023 Left foot pain (ICD-10 - M79.672) Plan Of Treatment Medication Medication Name Sig Start Date Stop Date Notes Gabapentin 100 MG 1-2 capsule Orally A t bedtime for 30 days 12/08/2023 Treatment Notes Assessment Notes Lesion of plantar nerve, right lower liu b Neuroma: Discussed various treatments with the patient regarding neuroma. Discussed conservative care consisting of padding, wider shoes, anti-inflammatories, and orthotics. Discussed surgical treatment options and answered all questions about the intra-operative and post-operative treatment course. Continue B6 And B12: Recommend that the patient take over the counter Vitamin B6 and B12. B6 pills should be taken 2-3 times a day. Vitamin B12 should be taken once a day as an under the tongue lozenge. Lesion of plantar nerve, left lower limb Resolved. Continue orthotics and B vitamins Peroneal tendinitis, right leg Peroneal Tendonitis: I discussed anti-inflammatory treatment options and various means of immobilization with the patient. I educated the patient on icing and stretching, supportive shoegear, and the use of orthotic devices and bracing. Hallux valgus (acquired), right foot Bunion: Discussed various treatments with the patient regarding hallux abducto valgus deformity. Discussed conservative care consisting of padding, wider shoes, anti-inflammatories, and orthotics. Discussed surgical treatment options and answered all questions about the intra-operative and post-operative treatment course. Continue PowerStep inserts Next Appt Details Follow Up: 4 Weeks, Reason: See how gabapentin/neurontin helped Provider Name:PETROS BROWNE, 10:20:00 AM, [address] [place] [address], [id number], Progress Notes * Cristy FINNEYOB:[birth year] (63 yo F)Acc No.[id number]:12/08/2023 Patient: Rito PIPETATY Jess Provider: Shin Browne DPM :1960 A ge:63 Y S ex:Female Date:12/08/2023 Address:[address] [place], [place] [id number] Subjective: * Chief Complaints: * 1 . While the cortisone injections have helped her neuromas, she still has some burning pain but it is mostly at night; preventing her from getting a restful sleep. * HPI: H PI: Follow Up Visit Rito wolff presents for follow up visit for bilateral injections. Rito wolff states their problem is improving slightly. Patient states the injections have helped however she is still experiencing numbnes and tingling. M A:SS. * ROS: G eneral / Constitutional: Patient denies c hills, fever, weakness, night sweats. M usculoskeletal: Patient denies c hildhood foot problems, weakness. P atient complains of j oint pain, bunion, h/o stress fractures, heel spurs. P eripheral Vascular: Patient denies u lceration of feet, cold extremities. ? S kin: Patient denies u lcerations, discoloration. ? N eurologic: Patient denies b alance difficulty, confusion, difficulty speaking, dizziness. P atient complains of b urning/ tingling, cramping, nerve pain. ? * Medical History: * Medications: T aking methylPREDNISolone 4 MG Tablet Therapy Pack as directed Orally , Notes to Pharmacist: one pack Objective: * Vitals: W t:185lbs, Wt-k.91 kg, Ht: 70 in, Ht-cm: 177.8 cm, BMI:26.54Index, Body Surface Area: 2.03. * Examination: C onstitutional: Constitutional T he patient is awake, alert, well developed, well groomed and well nourished.. D ermatologic: Skin findings: S kin is warm, dry, supple with no breaks in the skin.. V ascular: Dorsalis pedis pulse: 2 /4, bilateral. Posterior tibial pulse: 2 /4, bilaterally. Capillary refill: l ess than 3 seconds. Edema: N o edema, bilateral. N eurologic: Gross sensation G ross sensation is intact to light touch..? M usculoskeletal: Muscle Strength M uscle strength is 5/5 in regards to dorsiflexion, plantarflexion, inversion, and eversion in bilateral lower extremities.. Pain on palpation p ain on palpation to the 2nd and 3rd interspace, bilateral; , peroneal tendons of the right foot.. Hallux Abducto Valgus L aterally deviated hallux with medial prominence of the 1st metatarsal head left foot., Laterally deviated hallux with medial prominence of the 1st metatarsal head right foot.. Assessment: * Assessment: 1. L esion of plantar nerve, right lower limb - G57.61 (Primary) 2 . L esion of plantar nerve, left lower limb - G57.62 3 . P eroneal tendinitis, right leg - M76.71 4 . H allux valgus (acquired), right foot - M20.11 5 . H allux valgus (acquired), left foot - M20.12 6 . P ain in right foot - M79.671 7 . L eft foot pain - M79.672 Plan: * Treatment: 2. L esion of plantar nerve, left lower limb Notes: Resolved. Continue orthotics and B vitamins 3. P eroneal tendinitis, right leg Notes: Peroneal Tendonitis: I discussed anti-inflammatory treatment options and various means of immobilization with the patient. I educated the patient on icing and stretching, supportive shoegear, and the use of orthotic devices and bracing. 4. H allux valgus (acquired), right foot Notes: Bunion: Discussed various treatments with the patient regarding hallux abducto valgus deformity. Discussed conservative care consisting of padding, wider shoes, anti-inflammatories, and orthotics. Discussed surgical treatment options and answered all questions about the intra-operative and post-operative treatment course. Continue PowerStep inserts * Follow Up: 4 Weeks (Reason: See how gabapentin/neurontin helped) * Billing Information: * Visit Code: 51675 Office Visit, Est Pt., Level 3. * Procedure Codes: * TRIMMER Sign off status: Completed true * Provider: Shin Browne DPM Date: 0 12/08/2023 Generated for Patricia Ravi on: 0 12/17/2024 09:03 AM HAT TRIMMER History and Physical Notes * HPI (History of Present Illness) Category Sub-Category Detail Notes Category Not es HPI Follow Up Visit Patient presents for follow up visit for bilateral injections. Patient states their problem is improving slightly. Patient states the injections have helped however she is still experiencing numbnes and tingling. MA:SS Examination Category Sub-Category Detail Notes Category Not es Dermatologic Skin findings: Skin is warm, dr y, supple with no breaks in the skin. Neurologic Gross sensation Gross sensation is intact to light touch. Vascular Dorsalis pedis pulse: 2/4, bilateral Edema: No edema, bilateral Capillary refill: less than 3 seconds Posterior tibial pulse: 2/4, bilaterally Musculoskeletal Muscle Strength Muscle strength is 5/5 in regards to dorsiflexion, plantarflexion, inversion, and eversion in bilateral lower extremities. Pain on palpation pain on palpation to the 2nd and 3rd interspace, bilateral; , peroneal tendons of the right foot. Hallux Abducto Valgus Laterally deviated hallux with medial prominence of the 1st metatarsal head left foot., Laterally deviated hallux with medial prominence of the 1st metatarsal head right foot. Constitutional Constitutional The patient is a wake, alert, well developed, well groomed and well nourished.
--- OUTSIDE RECORDS SUMMARY | 2024-12-17 09:04 | XMS_ITS | Patient Health Record ---
Author Organization [facility] Address [address] [place], [place] [phone] Care Team Providers Care Vice President Global Digital Marketing Name Role Phone PETROS BROWNE Unavailable [phone] Answer, Declined Unavailable Unavailable Allergies No Known Allergies Reason For Referral No Information Medications Medication SIG (Take, Route, Frequency, Duration) Notes Start Date End Date Status Gabapentin 100 MG 1-2 capsules Orally at night for 30 days 01/05/2024 Active methylPREDNISolone 4 MG as directed Orally one pack 023 Active Gabapentin 100 MG 1-2 capsule Orally A t bedtime for 30 days 12/08/2023 Active Immunizations Vaccine Route Administration Date Status Comme nts Influenza, high dose seasonal Unknown 10/09/2023 Admini stered Vital Signs Height-cm 177.8 cm 01/05/2024 Weight-kg 83.91 kg 01/05/2024 Height 70 in 01/05/2024 Weight 185 lbs 01/05/2024 BMI 26.54 kg/m2 01/05/2024 Encounters Encounter Location Date Provider Diagnosis [facility] [place] [address] [place] [id number] 12/13/2024 PETROS BROWNE Hallux valgus (acquired), right foot M20.11 ; Other hammer toe(s) (acquired), right foot M20.41 ; 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 and Acquired keratosis [keratoderma] palmaris et plantaris L85.1 [facility] [place] [address] [place], [place] [id number] 01/05/2024 PETROS SNBILLK Lesion of plantar nerve, right lower limb G57.61 ; Lesion of plantar nerve, left lower limb G57.62 ; Peroneal tendinitis, right leg M76.71 ; Hallux valgus (acquired), right foot M20.11 ; Hallux valgus (acquired), left foot M20.12 ; Pain in right foot M79.671 and Left foot pain M79.672 Assessments Encounter Date Diagnosis (ICD Code) Assessment Notes Treatment Notes Treatment Clinical Notes Section Notes 01/05/2024 Lesion of plantar nerve, right lower limb [...] day as an under the tongue lozenge. 01/05/2024 Lesion of plantar nerve, left lower limb (ICD-10 - G57.62) Resolved. Continue orthotics and B vitamins 12/13/2024 Hallux valgus (acquired), right foot (ICD-10 - M20.11) Bunion: Discussed various treatments with the patient regarding hallux abducto valgus deformity. Discussed conservative care consisting of padding, wider shoes, anti-inflammatorie s, and orthotics. Discussed surgical treatment options and answered all questions about the intra-operative and post-operative treatment course. 12/13/2024 Other hammer toe(s) (acquired), right foot (ICD-10 - M20.41) Hammertoe Deformity: Discussed various treatments for hammer toes with the patient . Discussed conservative care consisting of padding, wider shoes, anti-inflammatorie s, and orthotics. Discussed surgical treatment options and answered all questions about the intra-operative and post-operative treatment course. 12/13/2024 Other specified congenital deformities of feet (ICD-10 - Q66.89) Hallux interphalangeus: Discussed various treatments with the patient regarding hallux abducto valgus deformity. Discussed conservative care consisting of padding, wider shoes, anti-inflammatorie s, and orthotics. Discussed surgical treatment options and answered all questions about the intra-operative and post-operative treatment course. 01/05/2024 Peroneal tendinitis, right leg (ICD-10 - M76.71) Peroneal Tendonitis: I discussed anti-inflammatory treatment options and various means of immobilization with the patient. I educated the patient on icing and stretching, supportive shoegear, and the use of orthotic devices and bracing. 01/05/2024 Hallux valgus (acquired), right foot (ICD-10 - M20.11) Bunion: Discussed various treatments with the patient regarding hallux abducto valgus deformity. Discussed conservative care consisting of padding, wider shoes, anti-inflammatorie s, and orthotics. Discussed surgical treatment options and answered all questions about the intra-operative and post-operative treatment course. Continue PowerStep inserts 12/13/2024 Acquired keratosis [keratoderma] palmaris et plantaris (ICD-10 - L85.1) Hyperkeratosis: The skin was prepped with isopropyl alcohol. Using a 15-blade scalpel, the hyperkeratotic skin lesions were sharply debrided down to healthy appearing skin. 01/05/2024 Hallux valgus (acquired), left foot (ICD-10 - M20.12) 01/05/2024 Pain in right foot (ICD-10 - M79.671) 01/05/2024 Left foot pain (ICD-10 - M79.672) 12/13/2024 Other Surgical Consent Surgical Consent The patient understands there are no guarantees. There is a chance of: 1. Infection 2. Failure or rejection of implant 3. Overcorrection 4. Undercorrection 5. Non resolution of the problem 6. Transfer lesions to adjacent metatarsals 7. Return of the problem 8. Numbness 9. Anesthetic reaction 10. Healing problems or blood clot 11. Additional or revisional surgery may be required if complications occur The patient had no further question and has agreed to undergo surgical correction of the admitting diagnosis. Patient has signed the written consent form at this time. Proposed Procedures: Addison bunionectomy with hardware right foot, Alfonzo osteotomy with hardware right foot, 2nd digit hammertoe correction with hardware right foot Plan Of Treatment Next Appt Details Provider Name:PETROS BROWNE, 10:20:00 AM, [address] [facility], [place], [place], [id number], Insurance Providers Payer Name Payer Address Payer Phone Subscriber Number Group Number Insured Name Patient Relationship to Insured Coverage Start Date Coverage End Date [employer] PPO [address] [place], [place] [id number] MARTA DUMONT Spouse - patient is the spouse of the insured Medical (General) History Medical History History ICD Code Arthritis Back Trouble hypertension Surgical History Surgery Date(Month/Year) back fusion L4-L5 11/2020
--- OUTSIDE RECORDS SUMMARY | 2024-12-17 09:04 | XMS_ITS | Referral Summary ---
Author Organization [facility] Address [address] [place] [address] Care Team Providers Care Electric Train Driver Name Role Phone Froilan Chaudhari DO Primary Care Provider [phone]- [phone] Encounters Date Type Department Care Team Description 10/20/2024 8:59 AM CONSUMER AFFAIRS SPECIALIST - 10/20/2024 11:59 PM CONSUMER AFFAIRS SPECIALIST Hospital Encounter [address] [place] [address] Right knee pain, unspecified chronicity Discharge Disposition: Discharge to home or self care 10/20/2024 9:15 AM CONSUMER AFFAIRS SPECIALIST Office Visit [facility] Orthopaedic Surgery [address] [place] [address] [address] [place] [address] Chelsea Hardin PA Primary osteoarthritis of right knee (Primary Dx) from Last 3 Months Allergies Active Allergy Reactions Criticality Noted Date Comments Oxycodone Nausea & Vomiting Low 07/17/2021 Medications lisinopril-hydr oCHLOROthiazide (ZESTORETIC) 20-12.5 mg per tabletIndicatio ns:hypertension Take 1 tablet by mouth nightly Active ergocalciferol (VITAMIN D) 50,000 unit capsuleIndicati ons:Vitamin D Deficiency Take 1 capsule (50,000 Units total) by mouth every 14 (fourteen) days Active atorvastatin (LIPITOR) 40 mg tabletIndicatio ns:hyperlipidem ia Take 40 mg by mouth nightly 07/24/2021 Active estradiol-noret hindrone (ACTIVELLA) 1-0.5 mg per tablet 02/01/2022 Active Active Problems Problem Noted Date Diagnosed Date Hallux valgus of right foot 05/12/2023 Hammer toe of right foot 05/12/2023 Lesion of right plantar nerve 05/12/2023 Arteriosclerosis of coronary artery 01/14/2022 Tear of left acetabular labrum 12/24/2021 Overview (12/24/2021): Added automatically from request for surgery [id number] Status post lumbar spinal fusion 01/02/2021 Assessment & Plan (05/01/2022 4:11 PM CDT): Ms. Finney continues to do well clinically after L4-5 decompression and fusion. There is no lucency around the hardware or signs of radiculopathy or significant back pain. She seems to have some mild piriformis syndrome on the left. We will not set up a scheduled appointment, but I would be happy to see her back at any point on as-needed basis. Assessment & Plan (05/01/2021 4:49 PM CDT): Ms. Finney he is clinically doing well after L4-5 decompression fusion with interbody fusion. She has no lucency of the hardware and no radiculopathy or significant back pain. She seems to significant inherent disease the left which is being addressed by ortho. I plan to see her back in 1 year with AP and lateral lumbar spine films at time. Assessment & Plan (01/02/2021 10:41 AM CONSUMER AFFAIRS SPECIALIST): PLAN: - Continue activity restrictions as outlined prior to surgery. - Continue brace. - After 6 weeks, patient may resume NSAIDs, may increase activity as tolerated, start physical therapy/aqua therapy/home exercise program, wean off brace. WORK STATUS: - Not working FOLLOW UP APPT: With Dr. Arceo in 4.5 months with Flexion/Extension Lumbar spine films. 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 09/08/2020 Overview (09/08/2020): Added automatically from request for surgery [id number] Obstructive sleep apnea syndrome in adult 2019 Essential (primary) hypertension 01/03/2020 Hyperlipidemia 01/03/2020 Menopause present 01/03/2020 Snoring 01/03/2020 Resolved Problems Problem Noted Date Diagnosed Date Resolved Date Lumbar stenosis with neurogenic claudication 0 05/01/2022 Assessment & Plan (09/05/2020 11:59 AM CDT): Ms. Finney has lumbar stenosis with neurogenic claudication. She has a large central disc bulge that extends out to the lateral recesses bilaterally, slightly worse on the right side. She has facet hypertrophy with lateral recess stenosis as well. In order to access the disc we would need to remove a significant portion of the facet on 1 or both sides causing iatrogenic instability. I have this offered her L4-5 laminectomy and fusion with an attempt to remove the central disc bulge as well. We discussed this is calcified and very adherent to the dura, we now able to move it but that she should have improvement of symptoms with the posterior decompression. She understands and wishes to proceed. We will arrange this for our earliest convenience. Immunizations Name Administration Dates Next Due Influenza, Quadrivalent, Soledad l Culture-based MDCK, Preservative Free, Antibiotic Free, Intramuscular 08/17/2021 Influenza, Quadrivalent, Split, Intramuscular ,09/07/2016 ZOSTER Recombinant 08/08/2020 Social History Tobacco Use Types Packs/Day Years Used Date Smoking Tobacco: Never Smokeless Tobacco: Never Tobacco Cessation:Counseling Given: Not Answered Alcohol Use Standard Drinks/Week Comments Yes 0 (1 standard drink = 0.6 oz pur e alcohol) Occasionally AUDIT-C Answer Date Recorded Q1: How often do you have a drink containing alc ohol? Monthly or less 02/21/2022 Q2: How many drinks containi ng alcohol do you have on a typical day when you are drinking? 1 or 2 02/21/2022 Q3: How often do you have si x or more drinks on one occasion? Never 02/21/2022 PHQ-2 Answer Date Recorded PHQ-2 Total Score (If total score is 3 or more points, staff should administer the PHQ-9) 0 09/05/2020 Comments Unknown Sex and Gender Information Value Date Recorded Sex Assigned at Not on file Legal Sex Female 12:13 PM CONSUMER AFFAIRS SPECIALIST Gender Identity Female 11/16/2021 1:34 PM CONSUMER AFFAIRS SPECIALIST Sexual Orientation Straight 11/16/2021 1: 34 PM CONSUMER AFFAIRS SPECIALIST Occupation Industry Job Start Date Job End Date Retired Not on file Not on file Not on file Last Filed Vital Signs Vital Sign Reading Time Taken Comments Blood Pressure 127/77 05/01/2022 11:12 AM CDT Pulse 69 05/01/2022 11:12 AM CDT Temperature 36.3 C (97.3 F) 02/21/2022 3:19 PM CDT Respiratory Rate 14 05/01/2022 11:12 AM CDT Oxygen Saturation 98% 02/21/2022 4:40 PM CDT Inhaled Oxygen Concentration - - Weight 83.9 kg (185 lb) 05/12/2023 10:35 AM CDT Height 177.8 cm (5' 10 ) 05/12/2023 10:35 AM CDT Body Mass Index 26.54 05/12/2023 10:35 AM CDT Plan of Treatment Not on file Medical Devices Implanted Type Area Campground Attendant Device Identifier Shelf Expiration Date Model / Serial / Lot Esposito & Nephew Endoscopy Bioraptor Knotless Inner Lock Plug Controllable Tension Flight Physician [id number] - Sna - [id number] Implanted:Qty: 1 on 02/21/2022 by Bharat Sylvester MD at [facility] Other - see comments Left: Hip Esposito & Nephew Endoscopy 09/07/2026 [id number] / NA / [id number] Arthrex Inc Knotless Suturetak Fiberwire 3mm 12.7mm 2 [place] Suture Peek Ar-1938ps - Sna - [id number] Implanted:Qty: 1 on 02/21/2022 by Bharat Sylvester MD at [facility] Other - see comments Left: Hip Arthrex Inc 05/09/2026 AR-1938PS / NA / [id number] I[employer]c [id number] Inqu Paste Mix Plus Ground Water Pump Installer 10cc Bone Graft Hyaluronic Acid Poly - [id number] Implanted:Qty: 1 on 11/20/2020 by French Arceo MD at [facility] N/A: Spine Lumbar I[employer] Llc [id number] 04/24/2022 [id number] / / [id number] Snabboteket Inc 700-025 I Factor Allograft Putty Syringe Graft 2.5cc Bone - [id number] Implanted:Qty: 1 on 11/20/2020 by French Arceo MD at [facility] N/A: Spine Lumbar Cerapedics Inc 04/09/2023 700-025 / / [id number] Cage Foundation 3d Straight [id number] 0 Deg - [id number] Implanted:Qty: 1 on 11/20/2020 by French Arceo MD at [facility] N/A: Spine Lumbar Core Link [id number] 120 09/08/2022 [id number] / / [id number] Core Link 47936-02 Palmer Screw Set 5500 Series - [id number] Implanted:Qty: 4 on 11/20/2020 by French Arceo MD at [facility] N/A: Spine Lumbar Core Link [id number] / / Core Link [id number] Palmer 6.5mm 40mm Spine Pedicle Screw Bone 5500 Series - [id number] Implanted:Qty: 4 on 11/20/2020 by French Arceo MD at [facility] N/A: Spine Lumbar Core Link [id number] / / Core Link [id number] Palmer 5.5mm 40mm Line Prebent Sandoval Spinal Nonsterile 5500 Series - [id number] Implanted:Qty: 2 on 11/20/2020 by French Arceo MD at [facility] N/A: Spine Lumbar Core Link [id number] / / Arthrex Inc Knotless Suturetak Fiberwire 3mm 12.7mm 2 [place] Suture Peek Ar-1938ps - [id number] Implanted:Qty: 1 on 02/21/2022 by hBarat Sylvester MD at [facility] Left: Hip Arthrex Inc 07/10/2026 AR-1938PS / / [id number] Description:Implant pause pe rformed Procedures Procedure Name Priority Date/Time Associated Diagnosis Comments AL ARTHROCENTESIS ASPIR&/INJ MAJOR JT/BURSA W/O US Routine 10/20/2024 9:15 AM CONSUMER AFFAIRS SPECIALIST Primary osteoarthritis of right knee XR KNEE RIGHT 4 OR MORE VIEWS Schedule Routine, Read Routine (OP Routine) 10/20/2024 9:07 AM CONSUMER AFFAIRS SPECIALIST Right knee pain, unspecified chronicity from Last 3 Months Results * AL ARTHROCENTESIS ASPIR&/INJ MAJOR JT/BURSA W/O US (10/20/2024 9:15 AM CONSUMER AFFAIRS SPECIALIST) Narrative Bharat Sylvester MD - 10/20/2024 9:15 AM CONSUMER AFFAIRS SPECIALIST Chelsea Hardin PA 10/20/2024 9:29 AM Large Joint Injection: R knee Performed by: Chelsea Hardin PA Authorized by: Chelsea Hardin PA Large Joint Injection/Aspiration: Consent Given by: Patient Site marked: the procedure site was marked Verbal consent obtained: Yes Supporting Documentation: Indications: Pain Procedure Details: Location: Knee Site: R knee Prep: patient was prepped and draped in usual sterile fashion Needle Size: 22 G Approach: Superior lateral Medications: 80 mg triamcinolone 40 mg/mL; 4 mL BUPivacaine HCl 0.25 % (2.5 mg/mL) Patient tolerance: Patient tolerated the procedure well with no immediate complications Chelsea WALTER IN CLINIC/BEDSIDE JIM PARSONS Final Result * XR Knee Right 4 or More Views (10/20/2024 9:07 AM CONSUMER AFFAIRS SPECIALIST) Anatomical Region Laterality Modality Lower Extremities, Knee Right Digital Radiography 10/20/2024 9:51 AM CONSUMER AFFAIRS SPECIALIST Narrative 10/20/2024 9:51 AM CONSUMER AFFAIRS SPECIALIST EXAMINATION: XR KNEE RIGHT 4 OR MORE VIEWS DATE: 10/20/2024 9:00 AM HISTORY: JOINT PAIN, HIP COMPARISON: None. FINDINGS: Bony mineralization is normal. There is severe medial compartment predominant 3 compartmental osteoarthritis. Loss of joint space in the medial compartment. Lateral subluxation of the tibia. Possible osteochondral lesion in the lateral patellar facet. Small joint effusion. Electronically signed by: Hamilton Story M.D. Procedure Note Hamilton Story MD - 10/20/2024 EXAMINATION: XR KNEE RIGHT 4 OR MORE VIEWS DATE: 10/20/2024 9:00 AM HISTORY: JOINT PAIN, HIP COMPARISON: None. FINDINGS: Bony mineralization is normal. There is severe medial compartment predominant 3 compartmental osteoarthritis. Loss of joint space in the medial compartment. Lateral subluxation of the tibia. Possible osteochondral lesion in the lateral patellar facet. Small joint effusion. Electronically signed by: Hamilton Story M.D. Chelsea WALTER IMG XR PROCEDURES Fatuma l Result from Last 3 Months Insurance [employer] [facility] [employer] OPEN ACCESS [facility] [id number] [facility] [id number] Care Teams Electric Train Driver Relationship Specialty Start Date End Date Froilan Chaudhari DO PCP - General Internal Medicine 09/29/17
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
--- OUTSIDE RECORDS SUMMARY | 2024-12-17 09:04 | XMS_ITS | Clinical Summary ---
Author Organization [facility] Building B Address [address] [place] [address] Care Team Providers Care Personal Injury Specialist Name Role Phone Froilan Chaudhari DO Primary Care Provider +1- [phone] Allergies Active Allergy Reactions Criticality Noted Date [...] (12/24/2021): Added automatically from request for surgery [id number] Status post lumbar spinal fusion 01/02/2021 Assessment [...] time. Assessment & Plan (01/02/2021 10:41 AM MECHANICAL ENGINEERING SPECIALIST): PLAN: - Continue activity restrictions as outlined prior to surgery. - Continue brace. - After 6 weeks, patient may resume NSAIDs, may increase activity as tolerated, start physical therapy/aqua therapy/home exercise program, wean off brace. WORK STATUS: - Not working FOLLOW UP APPT: With Dr. Arceo in 4.5 months with Flexion/Extension Lumbar spine films. Neurogenic claudication due to lumbar spinal steven nosis 09/08/2020 Overview (09/08/2020): Added automatically from request for surgery [id number] Obstructive sleep apnea syndrome in adult 2019 [...] will arrange this for our earliest convenience. Encounters Date Type Department Care Team Description 10/20/2024 9:15 AM MECHANICAL ENGINEERING SPECIALIST Office Visit [facility] Orthopaedic Surgery [address] [place] [address] [address] [place] [address] Chelsea Hardin PA Primary osteoarthritis of right knee (Primary Dx) 10/20/2024 8:59 AM MECHANICAL ENGINEERING SPECIALIST - 10/20/2024 11:59 PM MECHANICAL ENGINEERING SPECIALIST Hospital Encounter [address] [place] [address] Right knee pain, unspecified chronicity Discharge Disposition: Discharge to home or self care from Last 3 Months Immunizations Name Administration Dates Next Due Influenza, Quadrivalent, Soledad l Culture-based MDCK, Preservative Free, Antibiotic Free, Intramuscular 08/17/2021 Influenza, Quadrivalent, Split, Intramuscular ,09/07/2016 ZOSTER Recombinant 08/08/2020 Surgical History Surgery Date Site/Laterality Comments TUBAL LIGATION 11/10/1995 - 11/09/1996 BREAST BIOPSY 11/10/1974 - 11/09/1975 Right POSTERIOR FUSION LUMBAR SPINE 11/20/2020 L4-5 PSF (Adis) HIP SURGERY 02/08/2022 - 03/09/2022 Left Repair of labral tear SPINE SURGERY November 19, 2020 Medical History Medical History Date Comments HTN (hypertension) Vertigo Arthritis Neurogenic claudication due to lumbar spinal steven nosis Urinary tract infection Hypercholesteremia PONV (postoperative nausea and vomiting) Family History * Patient is adopted Medical History Relation Name Comments Hypertension Daughter 1 Kasey Depression Daughter 2 Kerri Finney Arthritis Son 1 ryguy Arthritis Son 2 Bharat Finney Rashes / Skin problems Son 2 Bharat Finney Relation Name Status Comments Daughter 1 Kasey Daughter 2 Kerri Finney Son 1 ryguy Son 2 Bharat Finney Social History Tobacco Use Types Packs/Day Years [...] on file Legal Sex Female 12:13 PM MECHANICAL ENGINEERING SPECIALIST Gender Identity Female 11/16/2021 1:34 PM MECHANICAL ENGINEERING SPECIALIST Sexual Orientation Straight 11/16/2021 1: 34 PM MECHANICAL ENGINEERING SPECIALIST Occupation Industry Job Start Date Job End Date Retired Not on file Not on file Not on file Obstetrics History Last Filed Vital Signs Vital Sign Reading [...] 05/12/2023 10:35 AM CDT Plan of Treatment Health Maintenance Due Date Last Done Comments Breast Cancer Screening-Mammogram 1960 Cervical Cancer Screening 1960 Colon Cancer Screening-Colonoscopy 1960 Hepatitis C Screening 1960 DTaP/Tdap/Td Vaccine (1 - Tdap) 1971 Hepatitis B Screening 1978 Regular Well Visit/Exam 18-64 1978 Zoster Vaccine (2 of 2) 10/03/2020 08/08/2020 Depression Screening 09/05/2021 09/05/2020, 09/05/2020 Covid-19 Vaccine (2023-2 5 season) 2024 10/03/2021, 03/06/2021, 02/06/2021 Influenza Vaccine (#1) 2024 , 08/08/2020, 09/07/2016 Pneumococcal vaccine <65 Aged Out No longer eligible based on patient's age to complete this topic Medical Devices Implanted Type Area Science Specialist Device Identifier Shelf Expiration Date Model / Serial / Lot Esposito & Nephew Endoscopy Bioraptor Knotless Inner Lock Plug Controllable Tension Senior Accounts Payable Clerk [id number] - Sna - [id number] Implanted:Qty: 1 on 02/21/2022 by Bharat Sylvester MD at [facility] Other - see comments Left: Hip Es[employer] Nephew Endoscopy 09/07/2026 [id number] / NA / [id number] Ar[employer]rex Inc Knotless Suturetak Fiberwire 3mm 12.7mm 2 Ambia Suture Peek Ar-1938ps - Sna - [id number] Implanted:Qty: 1 on 02/21/2022 by Bharat Sylvester MD at [facility] Other - see comments Left: Hip Arthrex Inc 05/09/2026 AR-1938PS / NA / [id number] [employer] [id number] Inqu Paste Mix Plus Budget Consultant 10cc Bone Graft Hyaluronic Acid Poly - [id number] Implanted:Qty: 1 on 11/20/2020 by French Arceo MD at [facility] N/A: Spine Lumbar [employer]c [id number] 04/24/2022 [id number] / / [id number] Cerapedics Inc 700-025 I Factor Allograft Putty Syringe Graft 2.5cc Bone - [id number] Implanted:Qty: 1 on 11/20/2020 by French Arceo MD at [facility] N/A: Spine Lumbar Cerapedics Inc 04/09/2023 700-025 / / [id number] Cage Foundation 3d Straight [id number] 0 Deg - [id number] Implanted:Qty: 1 on 11/20/2020 by French Arceo MD at [facility] N/A: Spine Lumbar Core Link [id number] 09/08/2022 [id number] / / [id number] Core Link 82935-10 [place] Screw Set 5500 Series - [id number] Implanted:Qty: 4 on 11/20/2020 by French Arceo MD at [facility] N/A: Spine Lumbar Core Link 54602-18 / / Core Link [id number] [place] 6.5mm 40mm Spine Pedicle Screw Bone 5500 Series - [id number] Implanted:Qty: 4 on 11/20/2020 by French Arceo MD at [facility] N/A: Spine Lumbar Core Link 06256-09 / / Core Link [id number] [place] 5.5mm 40mm Line Prebent Sandoval Spinal Nonsterile 5500 Series - [id number] Implanted:Qty: 2 on 11/20/2020 by French Arceo MD at [facility] N/A: Spine Lumbar Core Link [id number] / / Arthrex Inc Knotless Suturetak Fiberwire 3mm 12.7mm 2 Ambia Suture Peek Ar-1938ps - [id number] Implanted:Qty: 1 on 02/21/2022 by Bharat Sylvester MD at [facility] Left: Hip Arthrex Inc 07/10/2026 AR-1938PS / / [id number] Description:Implant pause pe rformed Procedures Procedure Name Priority Date/Time Associated Diagnosis Comments [place] ARTHROCENTESIS ASPIR&/INJ MAJOR JT/BURSA W/O US Routine 10/20/2024 9:15 AM MECHANICAL ENGINEERING SPECIALIST Primary osteoarthritis of right knee XR KNEE RIGHT 4 OR MORE VIEWS Schedule Routine, Read Routine (OP Routine) 10/20/2024 9:07 AM MECHANICAL ENGINEERING SPECIALIST Right knee pain, unspecified chronicity from Last 3 Months Results * VA ARTHROCENTESIS ASPIR&/INJ MAJOR JT/BURSA W/O US (10/20/2024 9:15 AM MECHANICAL ENGINEERING SPECIALIST) Narrative Bharat Sylvester MD - 10/20/2024 9:15 AM MECHANICAL ENGINEERING SPECIALIST Chelsea Hardin PA 10/20/2024 9:29 AM [...] 4 or More Views (10/20/2024 9:07 AM MECHANICAL ENGINEERING SPECIALIST) Anatomical Region Laterality Modality Lower Extremities, Knee Right Digital Radiography 10/20/2024 9:51 AM MECHANICAL ENGINEERING SPECIALIST Narrative 10/20/2024 9:51 AM MECHANICAL ENGINEERING SPECIALIST EXAMINATION: XR KNEE RIGHT 4 OR [...] l Result from Last 3 Months [facility] [id number] Member Subscriber Plan / Payer ( fective 2021-Present) Name:Jess Finney Member ID:[id number] Relation to Subscriber:Spouse Name:ROBINMARTA GUZMAN Subscriber ID:[id number] Date of :[birth year]99 (Home) Address: [address] [place], [place] [address] Payer ID:[id number] Type:[employer] HMO/PPO Address: [address] [place] [phone] Care Teams Personal Injury Specialist Relationship Specialty Start Date End Date Froilan Chaudhari DO PCP - General Internal Medicine 09/29/17
--- OUTSIDE RECORDS SUMMARY | 2024-12-17 09:04 | XMS_ITS ---
Author Organization [facility] Address [address] [place], [place] [address] Care Team Providers Care Canteen Attendant Name Role Phone PETROS RAMIREZ Unavailable [phone] Answer, Declined Unavailable Unavailable REASON FOR VISIT The patient no longer has neuroma pain. She attributes this to better shoes and Powerstep inserts. Her concern now is a painful callus on her right 2nd toe. It rubs against the 3rd toe and forms a painful callus. The great toe bunion is pushing this 2nd toe toward the 3rd., She has been consideringbunion surgery for a long time and thinks that this is now to the point she needs it addressed surgically as it is preventing her from being active Medications Medication SIG (Take, Route, Frequency, Duration) Notes Start Date End Date Status Gabapentin 100 MG 1-2 capsules Orally at night for 30 days 01/05/2024 Active methylPREDNISolone 4 MG as directed Orally one pack 023 Active Gabapentin 100 MG 1-2 capsule Orally A t bedtime for 30 days 12/08/2023 Active Encounters Encounter Location Date Provider Diagnosis [facility] [address] [place], [place] [id number] 12/13/2024 PETROS BROWNE Hallux valgus (acquired), right foot M20.11 ; Other hammer toe(s) (acquired), right foot M20.41 ; 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 12/13/2024 Acquired keratosis [keratoderma] palmaris et plantaris (ICD-10 - L85.1) Hyperkeratosis: The skin was prepped with isopropyl alcohol. Using a 15-blade scalpel, the hyperkeratotic skin lesions were sharply debrided down to healthy appearing skin. 12/13/2024 Other Surgical Consent Surgical Consent The [...] with hardware right foot Plan Of Treatment Treatment Notes Assessment Notes Hallux valgus (acquired), right foot Bun ion: Discussed various treatments with the patient regarding hallux abducto valgus deformity. Discussed conservative care consisting of padding, wider shoes, anti-inflammatories, and orthotics. Discussed surgical treatment options and answered all questions about the intra-operative and post-operative treatment course. Other hammer toe(s) (acquire d), right foot Hammertoe Deformity: Discussed various treatments for hammer toes with the patient . Discussed conservative care consisting of padding, wider shoes, anti-inflammatories, and orthotics. Discussed surgical treatment options and answered all questions about the intra-operative and post-operative treatment course. Other specified congenital d eformities of feet Hallux interphalangeus: Discussed variou s treatments with the patient regarding hallux abducto valgus deformity. Discussed conservative care consisting of padding, wider shoes, anti-inflammatories, and orthotics. Discussed surgical treatment options and answered all questions about the intra-operative and post-operative treatment course. Acquired keratosis [keratode rma] palmaris et plantaris Hyperkeratosis: The skin was prepped with isopropyl alcohol. Using a 15-blade scalpel, the hyperkeratotic skin lesions were sharply debrided down to healthy appearing skin. Other Surgical Consent Surgical Consent The patient [...] digit hammertoe correction with hardware right foot Next Appt Details Follow Up: prn, Reason: Post -op xrays at visit Provider Name:PETROS BALLBILLFelisha, 10:20:00 AM, [address], [address], [place], [place], [phone], Progress Notes * Cristy FINNEYOB:[birth year] (64 yo F)Acc No.[id number]:12/13/2024 Patient: Jess WINTER Provider: Shin Browne DPM :1960 A ge:64 Y S ex:Female Date:12/13/2024 [facility] Subjective: * Chief Complaints: * 1 . The patient no longer has neuroma pain. She attributes this to better shoes and Powerstep inserts. Her concern now is a painful callus on her right 2nd toe. It rubs against the 3rd toe and forms a painful callus. The great toe bunion is pushing this 2nd toe toward the 3rd.. 2. She has been considering bunion surgery for a long time and thinks that this is now to the point she needs it addressed surgically as it is preventing her from being active. * HPI: H PI: New Complaint E stablished patient presents with a new complaint., Patient complains of an issue to right 2nd digit pain. Patient states that she was seen for a neuroma around the same spot in the past and had injections for the pain. She states that the injections helped with her neuroma pain, but her right 2nd digit has been painful still. She states that it is mainly with walkingso it does not hurt as much in the mornings. , MA: lux. * ROS: G eneral / Constitutional: Patient [...] MG Capsule 1-2 capsule Orally At bedtime , Taking Gabapentin 100 MG Capsule 1-2 capsules Orally at night , Medication List reviewed and reconciled with the patient Objective: * Vitals: * Examination: C onstitutional: Constitutional T he patient is awake, alert, well developed, well groomed and well nourished. D ermatologic: Skin findings: S kin is warm, dry, supple with no breaks in the skin. Hypertrophic / hyperkeratotic lesion: l ateral aspect of the right 2nd digit. V ascular: Dorsalis pedis pulse: 2 /4, bilateral. Posterior tibial pulse: 2 /4, bilateral. Capillary refill: l ess than 3 seconds. Edema: N o edema, bilateral. N eurologic: Gross sensation G ross sensation is intact to light touch.? M usculoskeletal: Muscle Strength M uscle strength is 5/5 in regards to dorsiflexion, plantarflexion, inversion, and eversion in bilateral lower extremities. Hammertoes D orsally contracted digit 2nd right. The deformity is rigid and nonreducible. Hallux Abducto Valgus L aterally deviated hallux with medial prominence of the 1st metatarsal head right foot.. R adiographs: Right Foot X rays reveal an increased 1st IM angle, lateral deviation of the hallux, lateral displacement of the sesamoids and an enlarged medial prominence.? Assessment: * Assessment: 1. H allux valgus (acquired), right foot - M20.11 (Primary) 2 . O ther hammer toe(s) (acquired), right foot - M20.41 3 . O ther specified congenital deformities of feet - Q66.89 4 . A cquired keratosis [keratoderma] palmaris et plantaris - L85.1 Plan: * Treatment: 2. O ther hammer toe(s) (acquired), right foot Notes: Hammertoe Deformity: Discussed various treatments for hammer toes with the patient . Discussed conservative care consisting of padding, wider shoes, anti-inflammatories, and orthotics. Discussed surgical treatment options and answered all questions about the intra-operative and post-operative treatment course. ? 3. O ther specified congenital deformities of feet Notes: Hallux interphalangeus: Discussed various treatments with the patient regarding hallux abducto valgus deformity. Discussed conservative care consisting of padding, wider shoes, anti-inflammatories, and orthotics. Discussed surgical treatment options and answered all questions about the intra-operative and post-operative treatment course. 4. A cquired keratosis [keratoderma] palmaris et plantaris Notes: Hyperkeratosis: The skin was prepped with isopropyl alcohol. Using a 15-blade scalpel, the hyperkeratotic skin lesions were sharply debrided down to healthy appearing skin. 5. O thers Notes: Surgical Consent Surgical Consent The patient understands [...] digit hammertoe correction with hardware right foot * Follow Up: p rn (Reason: Post-op xrays at visit) * Billing Information: * Visit Code: * Procedure Codes: * Electronic signature of PETROS BROWNE DPM on 12/17/2024 at 09:04 AM LUBRICATION SUPERVISOR Sign off status: Pending * Provider: Shin Browne DPM Date: 12/13/2024 Generated for Patricia rasheed/Berenice/Olive on: 12/17/2024 09:04 AM LUBRICATION SUPERVISOR History and Physical Notes * HPI (History of Present Illness) Category Sub-Category Detail Notes Category Not es HPI New Complaint Established josephine ent presents with a new complaint., Patient complains of an issue to right 2nd digit pain. Patient states that she was seen for a neuroma around the same spot in the past and had injections for the pain. She states that the injections helped with her neuroma pain, but her right 2nd digit has been painful still. She states that it is mainly with walkingso it does not hurt as much in the mornings. , MA: mca Examination Category Sub-Category Detail Notes Category Not es Dermatologic Skin findings: Skin is warm, dr palacio, supple with no breaks in the skin Hypertrophic / hyperkeratotic lesion: la teral aspect of the right 2nd digit Neurologic Gross sensation Gross sensation is intact to light touch Vascular Dorsalis pedis pulse: 2/4, bilateral Edema: No edema, bilateral Capillary refill: less than 3 seconds Posterior tibial pulse: 2/4, bilateral Musculoskeletal Muscle Strength Muscle strength is 5/5 in regards to dorsiflexion, plantarflexion, inversion, and eversion in bilateral lower extremities Hammertoes Dorsally contracted digit 2nd right. The deformity is rigid and nonreducible Hallux Abducto Valgus Laterally deviated hallux with medial prominence of the 1st metatarsal head right foot. Constitutional Constitutional The patient is a wake, alert, well developed, well groomed and well nourished Radiographs Right Foot Xrays reveal an increased 1st IM angle, lateral deviation of the hallux, lateral displacement of the sesamoids and an enlarged medial prominence
== END 2024-12-17 08:50 | disposition home or self-care (01) ==
LOC: ANHCARD 08:49
PROVIDERS: PCP Internal Medicine; Visit Provider Nurse Practitioner
DX: R07.9 Chest pain, unspecified (principal)
CPT/HCPCS: 93351

== ENCOUNTER 2025-03-04 14:00 | Outpatient (CLI) | payer MEDICARE, SELFPAY ==
--- NOTE | ~2025-03-04 | CT_ITS ---
CT sinus wo con Ordering provider: Antonio Mariano M.D. History: . Other seasonal allergic rhinitis . Comparison: None. Technique: Thin slice Scans CT of the paranasal sinuses was performed with coronal and sagittal refor matted images. No IV contrast. . Automated exposure control and iterative reconstruction technique w ere employed. The dose-length product was 286.20 mGy-cm. Findings: NASAL SEPTUM: midline. OSTEOMEATAL UNITS: Bilaterally patent. NASAL TURBINATES AND NASOPHARYNX: Normal. PARANASAL SINUSES: Well aerated. VISUALIZED MASTOIDS: Normal as visualized. BONES: Normal. SUPERFICIAL SOFT TISSUES/VISUALIZED BRAIN PARENCHYMA: Normal. IMPRESSION: No definite abnormality seen. Reviewed, dictated and finalized at location A.
== END 2025-03-04 14:01 | disposition home or self-care (01) ==
LOC: MICIMG 14:01
PROVIDERS: PCP Internal Medicine; Visit Provider Otolaryngology
DX: J30.2 Other seasonal allergic rhinitis (principal); J32.2 Chronic ethmoidal sinusitis
CPT/HCPCS: 70486

== ENCOUNTER 2025-05-20 09:09 | Emergency (ER) | payer MEDICARE, SELFPAY ==
[2025-05-20 09:24] VITALS: BP 139/74; PULSE 73; RESP 16; TEMP 36.4; O2SAT 100
[2025-05-20 09:42] LABS: EDUAAPPEAR Cloudy; EDUABILI Negative (Negative); EDUABLOOD Negative (Negative); EDUACOLOR1 Light/Pale; EDUAGLUCOSE Negative (Negative); EDUAKETONE Negative (Negative); EDUALEUKO 1+ (Negative); EDUANITRATE Negative (Negative); EDUAPH 6.0; EDUAPROTEIN Negative (Negative); EDUASPGRAVITY 1.010; EDUAUROBILI 0.2
--- NOTE | 2025-05-20 13:10 | ED.FEMALEGU ---
HPI - Female Genitourinary General Chief complaint: Urogenital-Female Stated complaint: Uti Symptoms Time Seen by Provider: 05/20/25 09:54 Source: patient and RN notes reviewed Mode of arrival: ambulatory Limitations: no limitations History of Present Illness HPI Narrative: Patient presents today with a 3 week history of bilateral low back pain, malodorous urine, urinary frequency, and abdominal bloating. She has tried no vkni-pwx-dnsodlg treatment prior to arrival. States she called her PCPs office and was told to come to urgent care to rule out a UTI. Related Data Home Medications ?Medication ?Instructions ?Recorded ?Confirmed ?Last Taken ?Type cholecalciferol (vitamin D3) 1,250 50,000 unit PO .3x month 11/22/19 05/20/25 05/19/24 History mcg (50,000 unit) capsule estradiol-norethindrone acet 1 1 tablet PO DAILY 11/22/19 05/20/25 01/15/21 21:00 History mg-0.5 mg tablet (Activella) mecobalamin (vitamin B12) 1,000 1,000 mcg sublingual DAILY 01/01/24 05/20/25 05/27/24 History mcg disintegrating tablet,sublingual pyridoxine (vitamin B6) 100 mg 100 mg PO DAILY 01/01/24 05/20/25 05/27/24 History tablet ipratropium bromide 42 mcg (0.06 2 spray intranasal QID 05/20/25 05/20/25 Unknown History %) nasal spray Allergies Allergy/AdvReac Type Severity Reaction Status Date / Time hydrocodone Allergy Nausea Verified 05/20/25 09:27 [facility] Past Medical History Medical History (normal spontaneous vaginal delivery) x4 Elevated liver enzymes Anemia Adopted Vitamin D deficiency Hypercholesterolemia Vertigo Hypertension Insomnia Surgical History Surgical History History of bunionectomy History of breast biopsy History of bilateral tubal ligation History of hysteroscopy 2011 benign findings History of hip surgery Repair left labral tear Previous back surgery 11/20/2020 Social History Social History Smoking status: Never smoker Alcohol intake: current Alcohol use details: RARE USE 1 DRINK EVERY 2-3 MONTH Substance use: never Substance use type: does not use Lack of Transportation: No Lack of Food: Never True Current Housing: I Have Housing Concerned About Future Housing: No Difficulty Paying Gas/Electric Bills: No Difficulty Paying for Meds: No Currently Unemployed: No Education: High School Diploma/GED Difficulty w/ Childcare or Family Care: No Living arrangements: with family Spiritual care concerns: No Comments At time of signature, I have reviewed and agree with nursing past medical, surgical, social and family history unless otherwise noted. Please see nursing chart for further information. There is no relevant family history pertinent to the presenting complaint Exam Narrative: GENERAL: Well-appearing, well-nourished, and in no acute distress. HEAD: Normocephalic, atraumatic. EYES: EOMI. No redness or drainage. Conjunctivae normal. ENT: Mucous membranes pink and moist. NECK: Normal AROM. CHEST: No respiratory distress. Clear to auscultation. HEART: Regular rate and rhythm. No murmur appreciated. ABDOMEN: Soft, nondistended, normal active bowel sounds.+ suprapubic tenderness. No CVA tenderness MUSCULOSKELETAL: No bony tenderness. Mild tenderness to the bilateral lower lumbar paraspinal muscles. EXTREMITIES: Normal range of motion. No edema. SKIN: Warm, dry, no rash. Capillary refill normal. Normal skin turgor. NEURO: No focal deficits. Alert and oriented x3. Gait steady. PSYCH: Normal affect. No signs of depression or anxiety. Course Course Level of Care: Express Care Visit Vital Signs Vital signs: Vital Signs Temperature 97.6 F 05/20/25 09:24 Pulse Rate 73 05/20/25 09:24 Respiratory Rate 16 05/20/25 09:24 Blood Pressure 139/74 05/20/25 09:24 Pulse Oximetry 100 05/20/25 09:24 Temperature 97.6 F 05/20/25 09:24 Pulse Rate 73 05/20/25 09:24 Respiratory Rate 16 05/20/25 09:24 Blood Pressure 139/74 05/20/25 09:24 Pulse Oximetry 100 05/20/25 09:24 Reviewed MDM - Female Genitourinary MDM Narrative Medical decision making narrative: 65-year-old female patient with history of hypertension and high cholesterol presents today with a 3 week history of low back pain, malodorous urine, urinary frequency and bloating. Urinalysis shows 1+ leukocyte esterase, but is otherwise unremarkable. Given patient's exam and history, will treat with Keflex while culture is pending for presumed UTI. Vital signs are stable. Patient understands that there could be other etiologies for her symptoms and if the antibiotics do not improve her symptoms, she needs to follow up with her PCP for further evaluation. Anticipatory guidance given. Differential Diagnosis Differential diagnosis: Likely urinary tract infection, cystitis and other (Pyelonephritis, kidney stone) Lab Data Attestation: I reviewed the patient's lab results. Labs: Lab Results 05/20/25 Range/Units 09:39 POC Urine Color Light/pale POC Urine Clarity Cloudy POC Urine pH 6.0 POC Ur Specif [place] 1.010 POC Urine Protein Negative (Negative) POC Ur Glucose (UA) Negative (Negative) POC Urine Ketones Negative (Negative) POC Urine Blood Negative (Negative) POC Urine Nitrite Negative (Negative) POC Urine Bilirubin Negative (Negative) POC Urine Urobilinogen 0.2 POC U Leukocyte Esteras 1+ (Negative) Critical Care Time Critical Care Time Critical Care Time: No Discharge Plan Discharge Clinical Impression: Acute UTI Patient Disposition: Home Condition: Stable Instructions: Antibiotic Form, Urinary Tract Infection in Women (ED) Additional Instructions: Your urine shows possible infection today. Take Keflex as prescribed until gone. Your urine will be sent of for a culture to identify what type of bacteria is causing your infection. If the culture shows that your medication will not get rid of your infection, you will be notified and a new antibiotic will be called in for you. If your symptoms worsen to include fever, sweats, chills, nausea, vomiting, severe abdominal or back pain, please go to the ER for further evaluation. Your blood pressure was elevated above 120/80 today at Urgent Care. This puts you above the threshold for follow up. Please schedule a followup visit with your personal physician as soon as possible, for further evaluation and treatment. Even blood pressure exceeding 120/80 may indicate pre-hypertension. Patient Language: Japanese Prescriptions: New cephalexin 500 mg capsule 500 mg PO BID 7 Days Qty: 14 0RF No Action ipratropium bromide 42 mcg (0.06 %) spray,non-aerosol 2 spray INTRANASAL QID mecobalamin (vitamin B12) 1,000 mcg tablet,disintegrating 1,000 mcg sublingual DAILY Rx Instructions: place tablet under tongue and allow to dissolve for at least30 secs before swallowing pyridoxine (vitamin B6) 100 mg tablet 100 mg PO DAILY estradiol-norethindrone acet [Activella] 1-0.5 mg tablet 1 tablet PO DAILY cholecalciferol (vitamin D3) 50,000 unit capsule 50,000 unit PO .3x month Rx Instructions: hydrochlorothiazide 12.5 mg tablet 12.5 mg PO DAILY Qty: 90 3RF fexofenadine [Randi Allergy] 180 mg tablet 180 mg PO DAILY Qty: 30 3RF Rx Instructions: take 1 tablet daily for allergies lisinopril 10 mg tablet 10 mg PO DAILY Qty: 90 1RF atorvastatin 40 mg tablet 40 mg PO DAILY Qty: 90 1RF Follow-up/Referrals: Froilan Chaudhari DO [Primary Care Provider] - Time of Disposition: 10:02
== END 2025-05-20 10:05 | disposition home or self-care (01) ==
PROVIDERS: Emergency Provider Nurse Practitioner; PCP Internal Medicine
DX: N39.0 Urinary tract infection, site not specified (principal); E78.00 Pure hypercholesterolemia, unspecified; I10 Essential (primary) hypertension; E55.9 Vitamin D deficiency, unspecified
CPT/HCPCS: 81003; 87086; 99213; G0463

== ENCOUNTER 2025-07-05 08:04 | Outpatient (CLI) | payer MEDICARE, SELFPAY ==
--- OUTSIDE RECORDS SUMMARY | 2025-04-18 12:30 | XMS_ITS ---
Author Organization [facility] [place] ([address]) Address [address] [place] [address] Care Team Providers Care Society Reporter Name Role Phone Froilan Chaudhari Primary Care Provider Oksana Blackwell [phone] REASON FOR VISIT ARC follow-up Social History Sex Assigned At : Social History Observation Description Sex Assigned At Female Encounters Encounter Location Date Provider Diagnosis [facility] [address] [place] [address] 04/18/2025 Oksana Ho Plan Of Treatment No Information Progress Notes * Jess FINNEY RDOB: (65 yo F)Acc No.[id number]:04/18/2025 Progress Notes Patient: Rito BETANCURTATY Jess Johnson Provider: CHYNA Scales :1960 A ge:65 Y S ex:Female Date:04/18/2025 Address:[address] [place], [place] [id number] Pcp:Froilan Chaudhari Subjective: * Chief Complaints: * 1 . ARC follow-up. * Medical History: Objective: * Vitals: Assessment: Plan: * Treatment: * Billing Information: * Visit Code: * Procedure Codes: * Electronic signature of Oksana Ho DNP, FNP-C on 07/05/2025 at 08:07 AM CDT Sign off status: Pending * Provider: Efrain Ho DNP MANAGER PAYROLL-C Date: 0 04/18/2025 Generated for Patricia rasheed/Berenice/Olive on: 0 07/05/2025 08:07 AM CDT
--- OUTSIDE RECORDS SUMMARY | 2025-05-30 12:30 | XMS_ITS ---
Author Organization [facility] [place] ([address]) Address [address] [place] [address] Care Team Providers Care Feed Research Technician Name Role Phone Froilan Chaudhari Primary Care Provider Oksana Blackwell [phone] REASON FOR VISIT ARC follow-up Social History Sex Assigned At : Social History Observation Description Sex Assigned At Female Encounters Encounter Location Date Provider Diagnosis [facility] [address] [place] [address] 05/30/2025 Oksana Ho Plan Of Treatment No Information Progress Notes * Jess FINNEY RDOB: (65 yo F)Acc No.[id number]:05/30/2025 Progress Notes Patient: Rito BETANCURTATY Jess Johnson Provider: CHYNA Scales :1960 A ge:65 Y S ex:Female Date:05/30/2025 Address:[address] [place], [place] [id number] Pcp:Froilan Chaudhari Subjective: * Chief Complaints: * 1 . ARC follow-up. * Medical History: Objective: * Vitals: Assessment: Plan: * Treatment: * Billing Information: * Visit Code: * Procedure Codes: * Electronic signature of Oksana Ho DNP, FNP-C on 07/05/2025 at 08:07 AM CDT Sign off status: Pending * Provider: Efrain Ho DNP RENTAL REPRESENTATIVE-C Date: 0 05/30/2025 Generated for Patricia rasheed/Berenice/Olive on: 0 07/05/2025 08:07 AM CDT
--- OUTSIDE RECORDS SUMMARY | 2025-07-05 08:07 | XMS_ITS | Encounter Summary ---
Author Organization [facility] Address [address] [place] [address] Care Team Providers Care Leak Gang Supervisor Name Role Phone Ayse Hernandez MD Primary Care Provider [phone] Encounter Details Date Type Department Care Team (Late st Contact Info) Description 12/18/2018 Lab Requisition [facility] Care D[facility] Lab [address] [place] [phone] Adalgisa Tolliver MD [address] [facility] [address] [place] [address] Social History Tobacco Use Types Packs/Day Years Used Date Smoking Tobacco: Never Comments Unknown Sex and Gender Information Value Date Recorded Sex Assigned at Not on file Legal Sex Female 1:16 PM COPYWRITER Gender Identity Not on file Sexual Orientation Not on file documented as of this encounter Plan of Treatment Not on file documented as of this encounter Procedures Procedure Name Priority Date/Time Associated Diagnosis Comments DERMATOPATH TECHNICAL REPORT Routine 12/17/2018 12:00 AM COPYWRITER documented in this encounter Results * DERMATOPATH TECHNICAL REPORT (12/17/2018 12:00 AM COPYWRITER) Case Report Dermatopathology Report Case: [id number] Authorizing Provider: Adalgisa Tolliver MD Collected: 12/17/2018 12:00 AM Pathologist: Denisa Wallace MD Received: 12/18/2018 07:41 AM Specimen: Skin, right upper lip 9 1:22 PM COPYWRITER DERMATOPATHOLOGY LABORATORY Clinical History R/O nevus. Growing. 1:22 PM [facility] DERMATOPATHOLOGY LABORATORY Gross Description Specimen A: Received is one formalin filled container labeled with the patient's name and designated right upper lip. The specimen consists of a shave biopsy measuring 8x5x3 mm. Jar 0. [facility] Dermatopathology Laboratory performed the technical component only. 1:22 PM [facility] DERMATOPATHOLOGY LABORATORY Embedded Images 1:22 PM [facility] DERMATOPATHOLOGY LABORATORY DISCLAIMER An external and internal positive and negative controls are appropriate for the histochemical, immunohistochemical and immunofluorescence stain(s) in this case (if any), except where stated explicitly. The performance characteristics of the stain(s) cited in this report were developed and its performance characteristic determined by the Dermatopathology Laboratory at [facility], directed by Dr. Jaida Butcher. These tests need not be, and therefore are not, approved by the [place] Food and Drug Administration. The tests are used for clinical purposes. 1:22 PM [facility] DERMATOPATHOLOGY LABORATORY at [address] [facility] Pathology/Cytolog y TISSUE SPECIMEN FROM SKIN / Unknown 12/17/2018 12/18/2018 7:41 AM COPYWRITER Adalgisa Tolliver MD LAB - PATHOLOGY/CYTOLOGY OR DERABLES Final Result DERMATOPATHOLOGY LABORATORY [facility] - Department of Dermatology [address] [place] [address], [address] Floor Lab [address] [phone] documented in this encounter Visit Diagnoses Not on filedocumented in this encounter Care Teams Leak Gang Supervisor Relationship Specialty Start Date End Date Ayse Hernandez MD [address] [place] [address] PCP - General 01/23/12 documented as of this encounter
--- OUTSIDE RECORDS SUMMARY | 2025-07-05 08:07 | XMS_ITS | Patient Health Record ---
Author Organization [facility] [employer] [place] ([address]) Address [address] [place] [address] Care Team Providers Care Development Representative Name Role Phone Froilan Chaudhari Primary Care Provider UnavailOksana Schultz Unavailable [phone] Allergies No Known Allergies Results Component Value Reference Range Notes Spirometry Reviewed date:2025 10:24:50 AM Interpretation:Normal Performing Lab: Notes/Report: Normal SpiroPreBronchodilator_FVC 3.62 SpiroPostBronchodilator_FEF25_75 0 SpiroPreBronchodilator_FEF25_75 3.06 SpiroPreBronchodilator_FEV1 2.93 SpiroPrecentPredictionPost_FEF25_75 0 SpiroPrecentPredictionPost_FEV1 0 SpiroPrecentPredictionPost_FEV1_OVER_FVC 0 SpiroPrecentPredictionPost_FVC 0 SpiroPrecentPredictionPre_FEF25_75 125.9 SpiroPrecentPredictionPre_FEV1 102.8 SpiroPrecentPredictionPre_FEV1_OVER_FVC 109 SpiroPrecentPredictionPre_FVC 96.8 SpiroPredicted_FEF25_75 2.43 SpiroPreBronchodilator_FEV1_OVER_FVC 80.98 SpiroPreBronchodilator_PEF 6.46 SpiroPostBronchodilator_FVC 0 SpiroPostBronchodilator_FEV1 0 SpiroPostBronchodilator_FEV1_OVER_FVC 0 SpiroPostBronchodilator_PEF 0 SpiroPredicted_FVC 3.74 SpiroPredicted_FEV1 2.85 SpiroPredicted_FEV1_OVER_FVC 74.28 SpiroPredicted_PEF 6.35 Reason For Referral No Information Medications Medication SIG (Take, Route, Frequency, Duration) Notes Start Date End Date Status AeroChamber MV - as directed; Duration: 30 days Any adult spacer 2025 Active Ipratropium [place] 0.06 % INSTILL 2 SPR AYS EACH NOSTRIL NASALLY FOUR TIMES A DAY 90 DAYS; Duration: 90 Active Atorvastatin Calcium 40 MG TAKE 1 TABLET BY MOUTH EVERYDAY AT BEDTIME Oral; Duration: 90 Days Active Lisinopril 10 MG 1 tablet Orally Once a day Active Vitamin D (Ergocalciferol) 1.25 MG (31733 UT) TAKE ONE CAPSULE BY MOUTH THREE TIMES A MONTH Oral; Duration: 84 Days Active hydroCHLOROthiazide 12.5 MG Oral; Durati on: 90 Days Active Mimvey 1-0.5 MG Oral; Duration: 84 Days Active Vitamin D (Ergocalciferol) 1.25 MG (28128 UT) TAKE ONE CAPSULE BY MOUTH THREE TIMES A MONTH Oral; Duration: 84 Days Not-Taking Nasal Washes N/A as directed intranasally 2025 Active Albuterol Sulfate HFA 108 (90 Base) MCG/ACT 2 puffs as needed Inhalation every 4 hrs; Duration: 30 days 2025 Active Fexofenadine HCl 180 MG TAKE 1 TABLET BY MOUTH DAILY FOR CHRONIC SEASONAL ALLERGIC RHINITIS Oral Active Social History Tobacco Use: Social History Observation Description Date Details (start date - stop date) Never Smoker NA - NA Sex Assigned At : Social History Observation Description Sex Assigned At Female Tobacco Control (Standard) Question Answer Notes Tobacco use: Nonsmoker AUDIT-C (Standard) Question Answer Notes Did you have a drink contain ing alcohol in the past year? Yes How often did you have a dri nk containing alcohol in the past year? Monthly or less (1 point) How many drinks did you have on a typical day when you were drinking in the past year? 1 or 2 drinks (0 point) How often did you have six o r more drinks on one occasion in the past year? Never (0 point) Points 1 Interpretation Negative Problems Problem Type SNOMED Code ICD Code Onset Dates Problem Status W/U Status Risk Notes Problem Chronic allergic conjunctivitis (70716813) Other chronic allergic conjunctivitis (H10.45) Active confirmed Problem Allergic rhinitis caused by pollen (disorder) (06620264) Allergic rhinitis due to pollen (J30.1) Active confirmed Problem Allergic rhinitis (53634215) Other allergic rhinitis (J30.89) Active confirmed Problem Allergic rhinitis caused by animal hair and dander (469221625522612) Allergic rhinitis due to animal (cat) (dog) hair and dander (J30.81) Active confirmed Vital Signs Oximetry 98 % 2025 Blood pressure diastolic 90 mm Hg 2025 Blood pressure systolic 139 mm Hg 2025 Weight 191.4 lbs 2025 Encounters Encounter Location Date Provider Diagnosis [facility] [address] [facility] [address] [place] [address] 2025 Oksana Ho Allergic rhinitis du e to pollen J30.1 ; Allergic rhinitis due to animal (cat) (dog) hair and dander J30.81 ; Other allergic rhinitis J30.89 ; Other chronic allergic conjunctivitis H10.45 ; Cough, unspecified R05.9 and Elevated blood-pressure reading, without diagnosis of hypertension R03.[address] [address] 03/06/2025 Oksana Ho Assessments Encounter Date Diagnosis (ICD Code) Assessment Notes Treatment Notes Treatment Clinical Notes Section Notes 2025 Allergic rhinitis due to pollen (ICD-10 - J30.1) Given the history and symptoms, skin testing was performed to common aeroallergens to determine atopic status. Jess clearly suffers from atopic disease based upon our skin testing and clinical history. Accordingly, we have introduced a new, aggressive medication regimen, discussed nasal washes and allergy-specific avoidance measures. We also discussed adjunctive therapies including subcutaneous, specific allergen immunotherapy as relates to the treatment and prevention of atopic disease. She is currently considering the risks, benefits and alternatives to this care. Risks: bleeding, infection, allergic reaction, anaphylaxis; Benefits: reduced need for medications, improved symptoms, disease modification. Alternatives: watch/wait, change medication regimen, improve allergy avoidance measures. - Trial ipratropium bromide as she has failed azelastine in the past. - Consider trial of LTRA. - Follow-up in 1 month for interval evaluation and management 2025 Allergic rhinitis due to animal (cat) (dog) hair and dander (ICD-10 - J30.81) Follow allergen avoidance, meds and consider SCIT as an adjunctive treatment to current regimen 2025 Other allergic rhinitis (ICD-10 - J30.89) Follow allergen avoidance, meds and consider SCIT as an adjunctive treatment to current regimen 2025 Other chronic allergic conjunctivitis (ICD-10 - H10.45) Given ocular signs and symptoms I encouraged allergy avoidance measures and meds as above. If symptoms persist, consider adding additional medications including intraocular antihistamine/mast cell stabilizer, PRN and consider SCIT as an adjunctive measure 2025 Cough, unspecified (ICD-10 - R05.9) Jess reports frequent cough, though to be driven by PND, also reports occasional wheezing. Her symptoms are triggered by cool weather or when fans are blowing on her. She has never been prescribed an inhaler, no history of hospitalizations due to lower airway symptoms. - Spirometry obtained showing normal FEV1, FVC and FEV%. - Discussed trial of MARSHAL as-needed, needs AAP next visit. - If symptoms persist consider trial of ICS or ICS/LABA. - Jess is to contact the office if symptoms persist or worsen 2025 Elevated blood-pressure reading, without diagnosis of hypertension (ICD-10 - R03.0) BP elevated today without symptoms of urgency or emergency. Continue serial checks and follow-up with PCP Plan Of Treatment No Information Insurance Providers Payer Name Payer Address Payer Phone Subscriber Number Group Number Insured Name Patient Relationship to Insured Coverage Start Date Coverage End Date [employer] [address] [place] [address] [id number] RegJess newell Self - patient is the insured Medical (General) History Surgical History Surgery Date(Month/Year) bunionectomy 01/21/2025
--- OUTSIDE RECORDS SUMMARY | 2025-07-05 08:07 | XMS_ITS | Clinical Summary ---
Author Organization [facility] Address [facility] [place] [address] Care Team Providers Care Optics Engineer Name Role Phone HeraclioFroilan dougherty DO Primary Care Provider [phone] Allergies Active Allergy Reactions Criticality Noted Date Comments Oxycodone Nausea and Vomiting 01/21/2025 Medications atorvastatin (LIPITOR) 40 MG tablet Take 1 tablet (40 mg total) by mouth daily. Active Vitamin D3 (CHOLECALCIFEROL ) 50 mcg tablet Take 1 tablet (50 mcg total) by mouth daily. Active lisinopril (PRINIVIL) 10 MG tablet Take 1 tablet (10 mg total) by mouth daily. Active hydroCHLOROthiaz jose j (MICROZIDE) 12.5 MG tablet Take 1 tablet (12.5 mg total) by mouth every morning. Active vitamin B-12 (CYANOCOBALAMIN) (CYANOCOBALAMIN) 1000 mcg tablet Take 1 tablet (1,000 mcg total) by mouth daily. Active Pyridoxine HCl (B-6) 100 MG Tab Take 1 tablet by mouth daily. Active MIMVEY 1-0.5 MG Tab Take 1 tablet by mouth daily. 12/21/2024 Active Active Problems No known active problems Social History Tobacco Use Types Packs/Day Years Used Date Smoking Tobacco: Never Smokeless Tobacco: Never Tobacco Cessation:Counseling Given: Not Answered Alcohol Use Standard Drinks/Week Comments Not Currently 0 (1 standard drink = 0.6 oz pur e alcohol) rare Comments No Sex and Gender Information Value Date Recorded Sex Assigned at Female 01/21/2025 9:32 AM CDT Legal Sex Female 2:23 PM [employer] Gender Identity Not on file Sexual Orientation Not on file Last Filed Vital Signs Vital Sign Reading Time Taken Comments Blood Pressure 161/72 01/21/2025 4:15 PM CDT Pulse 58 01/21/2025 4:15 PM CDT Temperature 36.1 C (97 F) 01/21/2025 4:15 PM CDT Respiratory Rate 18 01/21/2025 4:15 PM CDT Oxygen Saturation 97% 01/21/2025 4:15 PM CDT Inhaled Oxygen Concentration - - Weight 86.3 kg (190 lb 4.1 oz) 01/21/2025 10:06 AM CDT Height 177.8 cm (5' 10) 01/21/2025 10:06 AM CDT Body Mass Index 27.3 01/21/2025 10:06 AM CDT Plan of Treatment Health Maintenance Due Date Last Done Comments Colorectal Cancer Screening Colonoscopy (10 Years) 1960 Hepatitis C 1978 Mammogram Screening 2000 Pneumococcal Vaccine: 50+ Years (1 of 1 - PCV) 2010 Zoster Vaccines (2 of 2) 10/03/2020 08/08/2020 COVID-19 Vaccine (2023- season) 2025 08/27/2024, 11/17/2023, 08/22/2022, Additional history exists Dexa Scan (General) 2025 DTaP, Tdap and Td Vaccines (2 - Td or Tdap) 01/01/2034 01/01/2024 RSV Immunization or 60+ Years (1 - [...] this topic Medical Devices Implanted Type Area Integrity Consultant Device Identifier Shelf Expiration Date Model / Serial / Lot 3.0x16mm Asnis Screw Implanted:Qty : 1 on 01/21/2025 by Jaime Woods DPM at [facility] Screw Right: Foot [employer] [id number] / / Staple Bone [id number] mm 2m - [id number] Implanted:Qty : 1 on 01/21/2025 by Jaime Woods DPM at [facility] Staple Right: Foot [employer] 08/09/2029 [id number] / / [id number] Toetac Xpress Implanted:Qty : 1 on 01/21/2025 by Jaime Woods DPM at [facility] Right: Foot [employer] [id number] 10/13/2026 [id number] / / [id number] Insurance [employer] OPEN ACCESS [facility] Care Teams Optics Engineer Relationship Specialty Start Date End Date Froilan Chaudhari DO [address] [facility] [address] [place] [address] PCP - General INTERNAL MEDICINE 01/12/25
--- OUTSIDE RECORDS SUMMARY | 2025-07-05 08:07 | XMS_ITS | Clinical Summary ---
Author Organization [facility] Office Building [address] Address [address] [place] [address] Care Team Providers Care Delivery Sales Worker Name Role Phone Froilan Chaudhari DO Primary Care Provider [phone] Allergies Active Allergy Reactions Criticality Noted Date Comments Oxycodone Nausea & Vomiting Low 07/17/2021 Medications ergocalciferol (VITAMIN D) 50,000 unit capsuleIndicati ons:Vitamin D Deficiency Take 1 capsule (50,000 Units total) by mouth every 14 (fourteen) days Active atorvastatin (LIPITOR) 40 mg tabletIndicatio ns:hyperlipidem ia Take 40 mg by mouth nightly 07/24/2021 Active estradiol-noret hindrone (ACTIVELLA) 1-0.5 mg per tablet 02/01/2022 Active hydroCHLOROthia zide 12.5 mg tablet 11/26/2024 Active lisinopriL (PRINIVIL,ZESTR IL) 10 mg tablet 11/26/2024 Active Active Problems Problem Noted Date Diagnosed Date Dizziness and giddiness 07/08/2023 Hallux valgus of right foot 05/12/2023 Hammer toe of right foot 05/12/2023 Lesion of right plantar nerve 05/12/2023 Arteriosclerosis of coronary artery 01/14/2022 Tear of left acetabular labrum 12/24/2021 Overview (12/24/2021): Added automatically from request for surgery [id number] Status post lumbar spinal fusion 01/02/2021 Assessment [...] time. Assessment & Plan (01/02/2021 10:41 AM PUBLIC RELATIONS DIRECTOR): PLAN: - Continue activity restrictions as outlined [...] (09/08/2020): Added automatically from request for surgery [id number] Obstructive sleep apnea syndrome in adult 2019 [...] Encounters Date Type Department Care Team Description 06/23/2025 9:05 AM CDT - 06/23/2025 11:59 PM CDT Hospital Encounter [address] [address] Cervicalgia Discharge Disposition: Discharge to home or self care 04/29/2025 2:15 PM CDT Office Visit [facility] Medicine Orthopaedic Surgery [address] [facility] [address] [place] [phone] Chelsea Hardin PA Primary osteoarthritis of right knee from Last 3 Months Immunizations Immunization Administration Dates Next Due Influenza, Quadrivalent, Soledad [...] Arthritis 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 Urinary tract infection Hypercholesteremia PONV (postoperative nausea and vomiting) Family History * Patient is adopted Medical History Relation Name Comments Hypertension Daughter 1 Kasey Depression Daughter 2 Kerri Finney Arthritis Son 1 ryguy Arthritis Son 2 Bharat Finney Rashes / Skin problems Son 2 Bhraat Finney Relation Name Status Comments Daughter 1 [...] on file Legal Sex Female 12:13 PM PUBLIC RELATIONS DIRECTOR Gender Identity Female 11/16/2021 1:34 PM PUBLIC RELATIONS DIRECTOR Sexual Orientation Straight 11/16/2021 1: 34 PM PUBLIC RELATIONS DIRECTOR Occupation Industry Job Start Date Job End [...] 10:35 AM CDT Height 177.8 cm (5' 10) 05/12/2023 10:35 AM CDT Body Mass Index 26.54 05/12/2023 10:35 AM CDT Plan of Treatment Health Maintenance Due Date Last Done Comments Breast Cancer Screening-Mammogram 1960 Cervical Cancer Screening 1960 Colon Cancer Screening-Colonoscopy 1960 Hepatitis C Screening 1960 Osteoporosis Screening-Bone Density Scan 1960 DTaP/Tdap/Td Vaccine (1 - Tdap) 1971 Hepatitis B Screening 1978 Pneumococcal vaccine 65+ (1 of 1 - PCV) 2010 Zoster Vaccine (2 of 2) 10/03/2020 08/08/2020 Depression Screening 09/05/2021 09/05/2020, 09/05/20 20 Fall Risk Assessment 02/21/2023 02/21/2022 Covid-19 Vaccine (4 - 2023-2 5 season) 2024 10/03/2021, 03/06/2021, 02/06/2021 Well Visit 65+ 2025 Influenza Vaccine (#1) 2025 3, 08/17/2021, 08/08/2020, Additional history exists Medical Devices Implanted Type Area Repeater Operator Device Identifier Shelf Expiration Date Model / Serial / Lot [employer]hew End[employer] Bioraptor Knotless Inner Lock Plug Controllable Tension German Teacher [id number] - Sna - [id number] Implanted:Qty: 1 on 02/21/2022 by Bharat Sylvester MD at [facility] Other - see comments Left: Hip [employer] 09/07/2026 [id number] / NA / [id number] Ar[employer] Knotless Suturetak Fiberwire 3mm 12.7mm 2 [place] Suture Peek Ar-1938ps - Sna - [id number] Implanted:Qty: 1 on 02/21/2022 by Bharat Sylvester MD at [facility] Other - see comments Left: Hip [employer] Inc 05/09/2026 AR-1938PS / NA / [id number] I[employer] [id number] Inqu Paste Mix Plus Teacher Of The Emotionally Disturbed 10cc Bone Graft Hyaluronic Acid Poly - [id number] Implanted:Qty: 1 on 11/20/2020 by French Arceo MD at [facility] N/A: Spine Lumbar [employer]sto [employer]i [employer]c [id number] 04/24/2022 [id number] / / [id number] [employer]ond[employer] 700-025 I Factor Allograft Putty Syringe Graft 2.5cc Bone - [id number] Implanted:Qty: 1 on 11/20/2020 by French Arceo MD at [facility] N/A: Spine Lumbar Cerapedics Inc 04/09/2023 700-025 / / [id number] Cage Foundation 3d Straight [id number] 0 Deg - [id number] Implanted:Qty: 1 on 11/20/2020 by French Arceo MD at [facility] N/A: Spine Lumbar Core Link [id number] 09/08/2022 [id number] / / [id number] Core Link [id number] [place] Screw Set 5500 Series - [id number] Implanted:Qty: 4 on 11/20/2020 by French Arceo MD at [facility] N/A: Spine Lumbar Core Link 30194-39 / / Core Link [id number] [place] 6.5mm 40mm Spine Pedicle Screw Bone 5500 Series - [id number] Implanted:Qty: 4 on 11/20/2020 by French Arceo MD at [facility] N/A: Spine Lumbar Core Link 51740-50 / / Core Link [id number] [place] 5.5mm 40mm Line Prebent Sandoval Spinal Nonsterile 5500 Series - [id number] Implanted:Qty: 2 on 11/20/2020 by French Arceo MD at [facility] N/A: Spine Lumbar Core Link [id number] / / Ar[employer] Knotless Suturetak Fiberwire 3mm 12.7mm 2 [place] Suture Peek Ar-1938ps - [id number] Implanted:Qty: 1 on 02/21/2022 by Bharat Sylvester MD at [facility] Left: Hip Ar[employer]rex Inc 07/10/2026 AR-1938PS / / [id number] Description:Implant pause pe rformed Procedures Procedure Name Priority Date/Time Associated Diagnosis Comments XR SPINE CERVICAL 2 OR 3 VIEWS Schedule Routine, Read Routine (OP Routine) 06/23/2025 9:12 AM CDT Cervicalgia RI ARTHROCENTESIS ASPIR&/INJ MAJOR JT/BURSA W/O US Routine 04/29/2025 2:15 PM CDT Primary osteoarthritis of right knee from Last 3 Months Results * XR Spine Cervical 2 or 3 Views (06/23/2025 9:12 AM CDT) Anatomical Region Laterality Modality Spine N/A Computed Radiogr aphy 06/27/2025 5:30 PM CDT Narrative 06/27/2025 5:31 PM CDT EXAM DESCRIPTION: 1. XR SPINE CERVICAL 2 OR 3 VIEWS REASON FOR STUDY: Cervicalgia Neck pain and h/a's for several weeks, nki FINDINGS: Two views submitted without comparison. No acute fracture. No prevertebral soft tissue swelling. Mild retrolisthesis of C4 on C5. Moderate C4-C5 and mild C5-C6 degenerative disc disease. Mild mid cervical facet osteoarthritis. IMPRESSION: 1. Moderate C4-C5 and mild C5-C6 degenerative disc disease with mild mid cervical facet osteoarthritis. THIS IS AN ELECTRONICALLY VERIFIED FINAL REPORT 06/27/2025 5:31 PM - Electronically signed by Eric Rios M.D. T: Report ID: [id number] Reading Location: [id number] Procedure Note Eric Rios MD - 06/27/2025 EXAM DESCRIPTION: 1. XR SPINE CERVICAL 2 OR 3 VIEWS REASON FOR STUDY: Cervicalgia Neck pain and h/a's for several weeks, nki FINDINGS: Two views submitted without comparison. No acute fracture. No prevertebral soft tissue swelling. Mildretrolisthesis of C4 on C5. Moderate C4-C5 and mild C5-C6 degenerative disc disease.Mild mid cervical facet osteoarthritis. IMPRESSION: 1. Moderate C4-C5 and mild C5-C6 degenerative disc disease with mild mid cervical facet osteoarthritis. THIS IS AN ELECTRONICALLY VERIFIED FINAL REPORT 06/27/2025 5:31 PM - Electronically signed by Eric Rios M.D. T: Report ID: [id number] Reading Location: [id number] us Bernadette Tucker PHYSICIAN ASST IMG XR PROCEDURES Final Resu lt * RI ARTHROCENTESIS ASPIR&/INJ MAJOR JT/BURSA W/O US (04/29/2025 2:15 PM CDT) Narrative Chelsea Hardin PA - 04/29/2025 2:15 PM CDT Chelsea Hardin PA 04/29/2025 2:16 PM Large Joint Injection: R knee Performed by: [...] [facility]BEDSIDE [facility] Final Result from Last 3 Months Insurance [employer] [facility] [employer] OPEN ACCESS [employer] [facility] AETNA MEDICARE FORMERLY [facility] MEDICARE Care Teams Delivery Sales Worker Relationship Specialty Start Date End Date Froilan Chaudhari DO PCP - General Internal Medicine 09/29/17
--- OUTSIDE RECORDS SUMMARY | 2025-07-05 08:07 | XMS_ITS | Patient Health Record ---
Author Organization [facility] Address [address] [place], [place] [id number] Care Team Providers Care Sisal Operator Name Role Phone PETROS BROWNE Unavailable [phone] Answer, Declined Unavailable Unavailable Allergies No Known Allergies Reason For Referral Reason [facility] 2024 ( 26103 1 UNIT / 33847 1 UNIT / 18383 1 UNIT / DR. BROWNE / [facility] Diagnosis 1 Hallux valgus (acqui red), right foot (M20.11) Referred Organization [facility] Referred Provider PETROS BROWNE Referred Address [address],[place], [id number], Referred Provider Specialty Podiatry Referral Priority Routine Medications Medication SIG (Take, Route, Frequency, Duration) Notes Start Date End Date Status Gabapentin 100 MG 1-2 capsules Orally at night; Duration: 30 days 01/05/2024 Active HYDROcodone-Acetaminophen 5-325 MG 1 tablet as needed Orally every 4-6 hrs As needed for pain. 01/19/2025 Active methylPREDNISolone 4 MG as directed Orally one pack 023 Active Gabapentin 100 MG 1-2 capsule Orally At bedtime; Duration: 30 days 12/08/2023 Active Immunizations Vaccine Route Administration Date Status Comme nts Influenza, high dose seasonal Unknown 10/09/2023 Admini stered Influenza, quadrivalent, spl it virus Unknown 09/07/2016 Administered Influenza, quadrivalent, spl it virus Unknown 08/08/2020 Administered Vital Signs Height-cm 177.8 cm 02/24/2025 Weight-kg 83.92 kg 02/24/2025 Height 70 in 02/24/2025 Weight 185 lbs 02/24/2025 BMI 26.54 kg/m2 02/24/2025 Encounters Encounter Location Date Provider Diagnosis [facility] [address] [place], [place] [id number] 01/21/2025 PETROS SNOOK [facility] [address] [place], [place] [id number] 12/13/2024 PETROS SNOOK Hallux valgus (acquired), right foot M20.11 ; Other hammer toe(s) (acquired), right foot M20.41 ; 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 ; Acquired keratosis [keratoderma] palmaris et plantaris L85.1 and Left foot pain M79.672 [facility] [address] [place] [id number] 01/26/2025 PETROS SNOOK Hallux valgus (acquired), right foot M20.11 ; Other hammer toe(s) (acquired), right foot M20.41 ; Encounter for other specified surgical aftercare Z48.89 and Pain in right foot M79.671 [facility] [address] [place], [place] [id number] 02/14/2025 PETROS SNOOK Hallux valgus (acquired), right foot M20.11 ; Other hammer toe(s) (acquired), right foot M20.41 ; Encounter for other specified surgical aftercare Z48.89 and Pain in right foot M79.671 [facility] [address] [place], [place] [id number] 02/24/2025 PETROS SNOOK Hallux valgus (acquired), right foot M20.11 ; Other hammer toe(s) (acquired), right foot M20.41 ; Encounter for other specified surgical aftercare Z48.89 and Pain in right foot M79.671 [facility] [address] [place], [place] [id number] 01/19/2025 PETROS SNOOK Assessments Encounter Date Diagnosis (ICD Code) Assessment [...] about the intra-operative and post-operative treatment course. 01/26/2025 Hallux valgus (acquired), right foot (ICD-10 - M20.11) 01/26/2025 Other hammer toe(s) (acquired), right foot (ICD-10 - M20.41) 02/14/2025 Hallux valgus (acquired), right foot (ICD-10 - M20.11) 02/14/2025 Other hammer toe(s) (acquired), right foot (ICD-10 - M20.41) 02/24/2025 Hallux valgus (acquired), right foot (ICD-10 - M20.11) 02/24/2025 Other hammer toe(s) (acquired), right foot (ICD-10 - M20.41) 01/26/2025 Encounter for other specified surgical aftercare (ICD-10 - Z48.89) 12/13/2024 Other specified congenital deformities of feet (ICD-10 - Q66.89) Hallux interphalangeus: Discussed various treatments with the patient regarding hallux abducto valgus deformity. Discussed conservative care consisting of padding, wider shoes, anti-inflammatorie s, and orthotics. Discussed surgical treatment options and answered all questions about the intra-operative and post-operative treatment course. 02/14/2025 Encounter for other specified surgical aftercare (ICD-10 - Z48.89) Suture Removal: The sutures were removed. K-Wire Removal: Utilizing standard aseptic technique, the percutaneous K-wire was removed without incident. Surgical Post Operative Visit: Continue post-operative restrictions. Patient may resume normal bathing. Wear surgical shoe at all times when bearing weight. Decrease activity. 02/24/2025 Encounter for other specified surgical aftercare (ICD-10 - Z48.89) Surgical Restriction Release: Patient may resume normal bathing. Return to normal shoes. Gradual return to activities as tolerated. Patient instructed to contact the office if any issues arise. 12/13/2024 Acquired keratosis [keratoderma] palmaris et plantaris (ICD-10 - L85.1) Hyperkeratosis: The skin was prepped with isopropyl alcohol. Using a 15-blade scalpel, the hyperkeratotic skin lesions were sharply debrided down to healthy appearing skin. 01/26/2025 Pain in right foot (ICD-10 - M79.671) 02/24/2025 Pain in right foot (ICD-10 - M79.671) 02/14/2025 Pain in right foot (ICD-10 - M79.671) 12/13/2024 Left foot pain (ICD-10 - M79.672) 12/13/2024 [...] digit hammertoe correction with hardware right foot 01/26/2025 Other Dressing Change: The old dressing was removed. Utilizing aseptic technique, a new sterile compression dressing was applied. Patient was instructed to keep it dry and not remove it. Continue post-operative restrictions. Keep foot and dressing dry. Wear surgical shoe at all times when bearing weight. Decrease activity. Plan Of Treatment No Information Insurance Providers Payer Name Payer Address Payer Phone Subscriber Number Group Number Insured Name Patient Relationship to Insured Coverage Start Date Coverage End Date [employer] [address] [place]E MOMIN [phone] [id number] Jess Finney Self - patient is the insured Medical (General) History Medical History History ICD Code Arthritis Back Trouble hypertension Surgical History Surgery Date(Month/Year) back fusion L4-L5 11/2020
--- OUTSIDE RECORDS SUMMARY | 2025-07-05 08:07 | XMS_ITS | Clinical Summary ---
Author Organization [facility] Address [address] [place] [address] Care Team Providers Care Manager Payment Name Role Phone Ayse Hernandez MD Primary Care Provider [phone] Source Comments [facility],non-owned Affiliates and Associated Physician Practices is amultiple site organization consisting of ambulatory clinics and hospital sitesin [place], [place], [place] and [place]. This disclosure is being madepursuant to the Care Everywhere program and may not contain all information available regarding this patient. Last updated 18.[facility] Allergies No known active allergies Medications * Be aware that medications may not be up to date on this document. Alwaysverify current medications with the patient. norethindrone-e thinyl estradiol (ORTHO-NOVUM ) 1-35 MG-MCG tablet Take 1 Tab by mouth once daily. Active multivitamin daily (THERAGRAN) tablet Take 1 Tab by mouth daily with food. Active [place]-3 Fatty Acids (FISH OIL) 1360 MG CAPS Take by mouth. Activ e calcium-vitamin D (OS-BUNNY 500 + D) 500-200 MG-UNIT tablet Take 1 Tab by mouth once daily. Active vitamin D, ergocalciferol, (DRISDOL) 54306 UNIT capsule Take 50,000 Units by mouth CONTINUOUS PRN. Active Glucosamine-Cho ndroitin (GLUCOSAMINE CHONDR COMPLEX PO) Take 1 Cap by mouth once daily after lunch. Active aspirin EC (ECOTRIN) 81 MG tablet Take 81 mg by mouth once daily. Active Social History Tobacco Use Types Packs/Day Years Used Date Smoking Tobacco: Never Comments Unknown Sex and Gender Information Value Date Recorded Sex Assigned at Not on file Legal Sex Female 1:16 PM [employer] Gender Identity Not on file Sexual Orientation [...] Health Maintenance Due Date Last Done Comments BONE DENSITY TESTING 1960 COLOGUARD (AGES 45-75) - COL ON CA SCREENING 1960 COLON MONITORING 1960 COLONOSCOPY - COLON CA SCREENING 1960 CT COLONOGRAPHY - COLON CA SCREENING 1960 Colorectal Cancer Screening 1960 FIT - COLON CA SCREENING 1960 FLEX SIG - COLON CA SCREENING 1960 LIPID TESTING 1960 MAMMOGRAM 1960 HIV SCREENING 1975 HEPATITIS C SCREENING 03/03/1978 DTAP/TDAP/TD VACCINES (1 - Tdap) 1979 PAP SMEAR 1981 PNEUMOCOCCAL VACCINE 50+ (1 of 1 - PCV) 2010 ZOSTER VACCINE (1 of 2) 2010 COVID-19 VACCINE ( - 2023-2 5 season) 2024 DEPRESSION SCREENING 11/10/2024 INFLUENZA VACCINE (#1) 2025 Respiratory Syncytial Virus (RSV) Vaccine Pt: or [...] to complete this topic MENINGOCOCCAL (Group B) VACC INE SHARED DECISION-MAKING Aged Out No longer eligibl e based on patient's age to complete this topic MENINGOCOCCAL GROUPS A/C/Y/W VACCINE Aged Out No longer eligible b ased on patient's age to complete this topic Insurance [employer] * Guarantor: MELANIE FINNEY Account Type Relation to Patient Date of Phone Billing Address Personal/Family [address] [place], [place] [phone] [employer] SELF PAY NO INSURANCE Member Subscriber Plan / Payer (Ef fective for All Dates) Name:Melanie Finney R Member ID:Not on file Relation to Subscriber:Not on file Name:MELANIE FINNEY Subscriber ID:Not on file (Home) Address: [address] [place] [phone] Payer ID:Not on file Group ID:Not on file Type:Self Pay Address: [place], [place] * Guarantor: MELANIE FINNEY Account Type Relation to Patient Date of Phone Billing Address Personal/Family [address] [place] [phone] [facility] Address: [place] [phone] SELF PAY NO INSURANCE Member Subscriber Plan / Payer (Ef fective for All Dates) Name:Melanie Finney R Member ID:Not on file Relation to Subscriber:Not on file Name:MELANIE FINNEY Subscriber ID:Not on file (Home) Address: [address] [place] [phone] Payer ID:Not on file Group ID:Not on file Type:Self Pay Address: [place], [place] * Guarantor: MELANIE FINNEY Account Type Relation to Patient Date of Phone Billing Address Personal/Family [address] [place] [phone] [employer] SELF PAY NO INSURANCE Member Subscriber Plan / Payer (Ef fective for All Dates) Name:Melanie Finney R Member ID:Not on file Relation to Subscriber:Not on file Name:MELANIE FINNEY Subscriber ID:Not on file (Home) Address: [address] [place] [phone] Payer ID:Not on file Group ID:Not on file Type:Self Pay Address: [place], [place] Care Teams Manager Payment Relationship Specialty Start Date End Date Ayse Hernandez MD [address] [place] [address] PCP - General 01/23/12
--- NOTE | 2025-07-05 10:49 | WPDPFTINT ---
PFT Procedure Performed PFT Procedure Performed Spirometry with Pre/Post Bronchodilator Plethysmography (Lung Vol) Diffusing Cap (DLCO) Flow Vol Loop PFT Interpretation This is a pulmonary function test with pre and post-bronchodilator spirometry, plethysmography and diffusing capacity. The test was performed and results interpreted in accordance with the 2019 and 2005 ATS/ERS Task Force guidelines respectively using the Global Lung Function Initiative-2012 reference equations. Patient demonstrated good effort and cooperation. Reproducibility criteria were met. The quality of the pre bronchodilator spirometry maneuver was Grade A and post bronchodilator spirometry maneuver was Grade A. Findings: Spirometry: The contour the inspiratory and expiratory flow tracing are normal. The pre bronchodilator FVC is 3.57 L, 96% predicted. The pre bronchodilator FEV1 is 2.78 L, 97% predicted. The pre bronchodilator FEV1: FVC ratio is 78%. The post bronchodilator FVC is 3.85 L, representing an 8% increase. The post bronchodilator FEV1 is 3.15 L, representing a 13% increase. The post bronchodilator FEV1: FVC ratio is 82%. Plethysmography: The total lung capacity is 5.44 L, 91% predicted. The functional residual capacity is 2.04 L, 60% predicted. The residual volume is 1.50 L, 63% predicted. Diffusing capacity: The diffusing capacity unadjusted for hemoglobin and carboxyhemoglobin is 18.9, 80% predicted. The diffusing capacity adjusted for alveolar volume is 3.57, 87% predicted. Impression: The spirometry is normal without evidence of an obstructive abnormality. There is significant improvement after inhaling a single dose of albuterol. The Total lung capacity is normal with a decreased functional residual capacity and residual volume. This is an abnormal but nonspecific lung volume pattern. The diffusing capacity is normal. There are no prior studies for comparison
== END 2025-07-05 08:05 | disposition home or self-care (01) ==
PROVIDERS: PCP Internal Medicine; Visit Provider Clinical Nurse Specialist
DX: R06.02 Shortness of breath (principal); Z91.09 Other allergy status, other than to drugs and biological substances
CPT/HCPCS: 94060; 94726; 94729

== ENCOUNTER 2025-10-25 10:42 | Outpatient (CLI) | payer MEDICARE, SELFPAY ==
--- NOTE | ~2025-10-25 | MM_ITS ---
EXAMINATION: MM screening andrea BI w meliton HISTORY: Screening TECHNIQUE: Craniocaudal and mediolateral oblique 3-D tomosynthesis images were obtained and synthetic 2-D images were generated. CAD analysis was submitted and interpreted. COMPARISON: Comparison to multiple prior studies sequentially, with oldest reviewed study dated , 10/20/2023 BREAST PARENCHYMAL COMPOSITION: Not Dense: There are scattered areas of fibroglandular density. FINDINGS: There is no evidence of suspicious mass, calcification, or architectural distortion to suggest malignancy in either breast. IMPRESSION: 1. No mammographic evidence of malignancy. 2. Recommend routine screening mammography in one year. BI-RADS Category 1: Negative Reviewed, dictated and finalized at location A. [facility] [place]
== END 2025-10-25 10:43 | disposition home or self-care (01) ==
LOC: MICIMG 10:44
PROVIDERS: PCP Internal Medicine; Visit Provider Obstetrics & Gynecology Gynecology
DX: Z12.31 Encounter for screening mammogram for malignant neoplasm of breast (principal)
CPT/HCPCS: 77063; 77067